=== PATIENT | female | born 1955 | race Caucasian/White ===

== ENCOUNTER → 2018-05-29 11:57 | Outpatient (CLI) | payer OTHER, SELFPAY | PROVIDERS: PCP Family Medicine; Visit Provider Family Medicine | DX: B83.9 Helminthiasis, unspecified (principal) | CPT/HCPCS: 87177 ==

== ENCOUNTER → 2018-05-30 13:57 | Outpatient (CLI) | payer OTHER, SELFPAY | PROVIDERS: PCP Family Medicine; Visit Provider Family Medicine | DX: Z53.9 Procedure and treatment not carried out, unspecified reason (principal) ==

== ENCOUNTER 2018-08-27 10:30 | Outpatient (RCR) | payer OTHER, SELFPAY ==
--- NOTE | 2018-06-23 08:54 | PT.OIE ---
Current Diagnoses Mixed incontinence (06/19/18) Other female genital prolapse (06/19/18) Past Medical History (Last Updated 04/18/18 @ 15:59 by Ashlee Tucker) Herpes (Chronic 1999) Sjogren's syndrome (Chronic 2014) Abnormal Pap smear of cervix (Resolved 2012) Cervical cancer (Resolved 2012) HPV (human papilloma virus) infection (Resolved 2012) Lupus (Resolved 2014) Past Surgical History (Last Updated 04/18/18 @ 15:56 by Ashlee Tucker) Anesthesia (Resolved) Status post appendectomy (Resolved 1972) Status post delivery (Resolved 1981) Status post delivery (Resolved 1983) Provider Visit Care Team Role Provider Type Mayela Juarez MD Primary Care Provider Physician Specialty: Family Practice Address: [address] [place] [address] Email: [email or web address] Audelia Hernandez MD Attending Provider Physician Specialty: ARMATURE COIL WINDER Address: [address] [place] [address] Email: [email or web address] Physical Therapy Initial Evaluation PT-OP-A Visit Information Start: 06/23/18 08:23 Freq: Status: Active Protocol: Document 06/19/18 13:00 [facility] (Rec: 06/23/18 08:51 [facility] [email or web address]) Out-Patient Physical Therapy Visit Information Visit Information Visit Type Initial Evaluation Visit Start Time 13:00 Visit Stop Time 13:45 Total Visit Minutes 45 Visit Number 1 Evaluation Information Evaluation Date 06/19/18 PT-OP-B Current Condition Start: 06/23/18 08:23 Freq: Status: Active Protocol: Document 06/19/18 13:00 [facility] (Rec: 06/23/18 08:51 [facility] [email or web address]) Current Condition History of Current Condition Onset Date 2 years ago Current Complaints urinary incontinence, pain during intercourse and pelvic pressure History of Current Condition 63 year old female who began having symptoms of urinary incontinence 2 years ago. She has complaints of leaking 3 times per day and pelvic organ prolapse that is intermittent but that also makes intercourse uncomfortable. She has a history of 2 C- section deiveries, lupus, sjogrens disease, she is currently taking vaginal topical estrogen which she feels is helping her. Current Functional Impairments (Reported) Functional Limitations- Recreation/ leakage with exercise and her Hobbies walking routine in the AM is compromised due to urgency PT-OP-F Manual Assessment Start: 06/23/18 08:23 Freq: Status: Active Protocol: Document 06/19/18 13:00 [facility] (Rec: 06/23/18 08:51 [facility] [email or web address]) Manual Assessments Soft Tissue Assessment Soft Tissue Mobility Assessment tightness of the gluteal musculature and tendency to fiber machine tender with her gluteals in standing Joint Mobility Assessment Joint Mobility Assessment decreased hip mobility due to soft tissue tightness, decreased flexibility of the piriformis and posterior gluteal region PT-OP-I Pelvic Floor Start: 06/23/18 08:23 Freq: Status: Active Protocol: Document 06/19/18 13:00 [facility] (Rec: 06/23/18 08:51 [facility] [email or web address]) Pelvic Floor Assessment Urine Pelvic Floor Surgery No Urinary Symptoms Urge Sensation Prolapse Other Urinary Symptoms intermittent complaints of cramping and pain, unable to finish her walk around [place] without urgency and having to void Leakage Size Medium Leakage Cause Cough Exercise Leaks Per Day 3 Voiding Frequency will work on bladder diary for next visit Nocturia 1-2 Pelvic Clock Pelvic Clock 12-3 Atrophy Pelvic Clock 3-6 Tightness Pelvic Clock 6-9 Tightness Pelvic Clock 9-12 Atrophy Pelvic Clock Other decreased contraction intensity overall and tightness noted in the posterior lateral vincent of the pelvic floor bilaterally, it is difficult for Irma to completly relax her gluteal muscles at rest Prolapse Cystocele Grade 2 Urethrocele Grade 1 SEMG (uV) Baseline 3.1 10 Second Contraction 11.3 Recruitment Pattern Fair Relaxation Fair Holding Fair Stability of Hold Fair SEMG Stability of Rest Fair Contraction Ability Voluntary Contraction Weak Manual Muscle Testing Left 3 Manual Muscle Testing Right 3 Manual Muscle Testing Anterior 3 Manual Muscle Testing Posterior 3 Muscle Endurance (Seconds) 6 PT-OP-Q Treatments Start: 06/23/18 08:23 Freq: Status: Active Protocol: Document 06/19/18 13:00 [facility] (Rec: 06/23/18 08:51 [facility] [email or web address]) Therapeutic Exercises Supine Exercises 2 Supine Exercise Name roll outs with theraband Side bilateral Reps/Minutes 3 sets of 10 reps 1 Supine Exercise Name pelvic floor isolations 10 second hold time with 10-20 second relaxation Side bilateral Reps/Minutes 2 sets of 10 reps per day Self-Care/Home Management Treatment Education Patient Education Home Exercise Program Other Education bladder diary PT-OP-T Assessment and Plan Start: 06/23/18 08:23 Freq: Status: Active Protocol: Document 06/19/18 13:00 [facility] (Rec: 06/23/18 08:51 [facility] [email or web address]) Physical Therapy Assessment Rehab Potential Rehabilitation Potential Excellent Evaluation Complexity Number of Personal Factors/Comorbidities 0 Number of Body Systems Impaired 1-2 Clinical Presentation at Evaluation Stable Impairments Impairments Activity Tolerance Pain Soft Tissue Mobility Strength Tone Other Impairments urinary urgency and incontinence and pelvic organ prolapse Goals Four Impairment decreased flexibility of the piriformis and hip ER Research Program Internship Goal (LTG) Improve piriformis flexibility and ER mobility of the hips LTG Duration 8 weeks Three Impairment gluteal tightness, over dominance of the gluteals over the levator ani Research Program Internship Goal (LTG) Irma is educated on stretches for the gluteals and posterior pelvic floor to reduce the tendency for the gluteals to be compensating for the pelvic floor. This will help improve pelvic floor facilitation and decrease hip compression LTG Duration 8 weeks Two Impairment urinary urgency Short Term Goal (STG) Irma is educated on bladder irritants and on bladder retraining to help decrease urinary urgency symptoms STG Duration 6 weeks One Impairment pelvic floor weakness Research Program Internship Goal (LTG) Improve pelvic floor strength from 3/5 MMT to 4/5 MMT and improve awareness of the anterior pelvic floor to help support the bladder and decrease leakage. Irma is able to continue her walking routine without leakage LTG Duration 8 weeks Assessment Summary Assessment Irma presents to physical therapy today with symptoms of urinary urgency and incontinence and newer symptoms of pelvic organ prolapse. She is able to facilitate all her pelvic floor muscles but is weak. She is guarded in the posterior lateral vincent of the levator ani. She has a tendency to fiber machine tender with her gluteals both at rest and in standing positions to compensate for pelvic floor weakness. She responded well today to EMG biofeedback as a tool for both relaxed awareness of the posterior pelvic floor and as neuro re-education for anterior pelvic floor facilitation. Irma's goals include being able to do her walk without urgency and leakage. She is a good candidate for PT Physical Therapy Plan Frequency and Duration Frequency of Treatment 1x/Week Duration of Treatment 8 weeks Plan of Care Start Date 06/19/18 Plan of Care End Date 08/14/18 Therapeutic Interventions Therapeutic Interventions Home Exercise Program Manual Therapy Neuromuscular Re-education Patient/Caregiver Education Self-Care/Home Management Soft Tissue Mobilization Therapeutic Exercises Modalities Biofeedback Next Visit Focus/Plan Next Note Type Treatment Note Next Visit Plan Progress pelvic floor and hip strengthening and begin a stretching routine for the posterior gluteal musculature
--- NOTE | 2018-06-23 08:55 | PT.OPPOC ---
Current Diagnoses Mixed incontinence (06/19/18) Other female genital prolapse (06/19/18) Provider Visit Care Team Role Provider Type Mayela Juarez MD Primary Care Provider Physician Specialty: Family Practice Address: [address] [place] [address], [id number] Email: [email or web address] Audelia Hernandez MD Attending Provider Physician Specialty: SUPERVIS[employer]ING [employer]STING Address: [address] [place] [address], [id number] Email: [email or web address] Plan Of Care PT-OP-T Assessment and Plan Start: 06/23/18 08:23 Freq: Status: Active Protocol: Document 06/19/18 13:00 [facility] (Rec: 06/23/18 08:51 [facility] [email or web address]) Physical Therapy Assessment Rehab Potential Rehabilitation Potential Excellent Evaluation Complexity Number of Personal Factors/Comorbidities 0 Number of Body Systems Impaired 1-2 Clinical Presentation at Evaluation Stable Impairments Impairments Activity Tolerance Pain Soft Tissue Mobility Strength Tone Other Impairments urinary urgency and incontinence and pelvic organ prolapse Goals Four Impairment decreased flexibility of the piriformis and hip ER Photo Machine Operator Goal (LTG) Improve piriformis flexibility and ER mobility of the hips LTG Duration 8 weeks Three Impairment gluteal tightness, overdominance of the gluteals over the levator ani Photo Machine Operator Goal (LTG) Irma is educated on stretches for the gluteals and posterior pelvic floor to reduce the tendency for the gluteals to be compensating fo the pelvic floor. This will help improve pelvic floor facilitation and decrease hip compression LTG Duration 8 weeks Two Impairment urinary urgency Short Term Goal (STG) Irma is educated on bladder irritants and on bladder retraining to help decrease urinary urgency symptoms STG Duration 6 weeks One Impairment pelvic floor weakness Photo Machine Operator Goal (LTG) Improve pelvic floor strength from 3/5 MMT to 4/5 MMT and improve awareness of the anterior pelvic floor to help support the bladder and decrease leakage. Irma is able to continue her walking routine without leakage LTG Duration 8 weeks Assessment Summary Assessment Irma presents to physical therapy today with symptoms of urinary urgency and incontinence and newer symptoms of pelvic organ prolapse. She is able to facilitate all her pelvic floor muscles but is weak. She is guarded in the posterior lateral vincent of the levator ani. 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 She responded well today to EMG biofeedback as a tool for both relaxed awarness of the posterior pelvic floor and as neuro re-education for anterior pelvic floor facilitation. Irma's goals include being able to do her walk without urgency and leakage. She is a good candidate for PT Physical Therapy Plan Frequency and Duration Frequency of Treatment 1x/Week Duration of Treatment 8 weeks Plan of Care Start Date 06/19/18 Plan of Care End Date 08/14/18 Therapeutic Interventions Therapeutic Interventions Home Exercise Program Manual Therapy Neuromuscular Re-education Patient/Caregiver Education Self-Care/Home Management Soft Tissue Mobilization Therapeutic Exercises Modalities Biofeedback Next Visit Focus/Plan Next Note Type Treatment Note Next Visit Plan Progress pelvic floor and hip strengthening and begin a stretcing routine for the posterior gluteal musculature Plan of Care Dates Plan of Care Start Date 06/19/18 Plan of Care End Date 08/14/18 Please Sign and Return: I have reviewed this Plan of Care and certify that the skilled therapy services above are required to meet the patient?s needs. Physician Signature Date Printed Name and Credentials Clinical Instructor Signature Printed Name and Credentials
--- NOTE | 2018-06-27 17:26 | PT.OTN ---
Current Diagnoses Mixed incontinence (06/27/18) Other female genital prolapse (06/27/18) Physical Therapy Treatment Note PT-OP-A Visit Information Start: 06/23/18 08:23 Freq: Status: Active Protocol: Document 06/27/18 17:19 [facility] (Rec: 06/27/18 17:25 [facility] [email or web address]) Out-Patient Physical Therapy Visit Information Visit Information Visit Type Treatment Note Visit Start Time 09:45 Visit Stop Time 10:30 Total Visit Minutes 45 Visit Number 2 PT-OP-B Current Condition Start: 06/23/18 08:23 Freq: Status: Active Protocol: Document 06/19/18 13:00 [facility] (Rec: 06/23/18 08:51 [facility] [email or web address]) Current Condition History of Current Condition Onset Date 2 years ago Current Complaints urinary incontinence, pain during intercourse and pelvic pressure History of Current Condition 63 year old female who began having symptoms of urinary incontinence 2 years ago. She has complaints of leaking 3 times per day and pelvic organ prolapse that is intermittent but that also makes intercourse uncomfortable. She has a history of 2 C- section deiveries, lupus, sjogrens disease, she is currently taking vaginal topical estrogen which she feels is helping her. Current Functional Impairments (Reported) Functional Limitations- Recreation/ leakage with exercise and her Hobbies walking routine in the AM is compromised due to urgency PT-OP-C Subjective Start: 06/27/18 17:25 Freq: Status: Active Protocol: Document 06/27/18 17:25 [facility] (Rec: 06/27/18 17:26 [facility] [email or web address]) OP-PT Subjective Patient Comments Patient Comments Irma reports she has really been working on posterior pelvic floor relaxation. 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 in standing Joint Mobility Assessment Joint Mobility Assessment decreased hip mobility due to soft tissue tightness, decreased flexibility of the piriformis and posterior gluteal region PT-OP-I Pelvic Floor Start: 06/23/18 08:23 Freq: Status: Active Protocol: Document 06/19/18 13:00 [facility] (Rec: 06/23/18 08:51 [facility] [email or web address]) Pelvic Floor Assessment Urine Pelvic Floor Surgery No Urinary Symptoms Urge Sensation Prolapse Other Urinary Symptoms intermittent complaints of cramping and pain, unable to finish her walk around [facility] without urgency and having to void Leakage Size Medium Leakage Cause Cough Exercise Leaks Per Day 3 Voiding Frequency will work on bladder diary for next visit Nocturia 1-2 Pelvic Clock Pelvic Clock 12-3 Atrophy Pelvic Clock 3-6 Tightness Pelvic Clock 6-9 Tightness Pelvic Clock 9-12 Atrophy Pelvic Clock Other decreased contraction intensity overall and tightness noted in the posterior lateral vincent of the pelvic floor bilaterally, it is difficult for Irma to completly relax her gluteal muscles at rest Prolapse Cystocele Grade 2 Urethrocele Grade 1 SEMG (uV) Baseline 3.1 10 Second Contraction 11.3 Recruitment Pattern Fair Relaxation Fair Holding Fair Stability of Hold Fair SEMG Stability of Rest Fair Contraction Ability Voluntary Contraction Weak Manual Muscle Testing Left 3 Manual Muscle Testing Right 3 Manual Muscle Testing Anterior 3 Manual Muscle Testing Posterior 3 Muscle Endurance (Seconds) 6 PT-OP-Q Treatments Start: 06/23/18 08:23 Freq: Status: Active Protocol: Document 06/27/18 17:19 [facility] (Rec: 06/27/18 17:25 [facility] [email or web address]) Therapeutic Exercises Supine Exercises 4 Supine Exercise Name modified pelvic floor squat stretch Reps/Minutes hold 1-2 minutes 3 Supine Exercise Name ball squeeze with pelvic floor contraction Reps/Minutes 2 x 10 2 Supine Exercise Name roll outs with theraband Side bilateral Reps/Minutes 3 sets of 10 reps 1 Supine Exercise Name pelvic floor isolations 10 second hold time with 10-20 second relaxation Side bilateral Reps/Minutes 2 sets of 10 reps per day Other Exercises 2 Other Exercise Name nataly pose Reps/Minutes 1-2 minute hold 1 Other Exercise Name quadraped cat cow Comments pelvic floor relaxation on the inhale and cues to spread sitting bones PT-OP-T Assessment and Plan Start: 06/23/18 08:23 Freq: Status: Active Protocol: Document 06/27/18 17:19 [facility] (Rec: 06/27/18 17:25 [facility] [email or web address]) Physical Therapy Assessment Assessment Summary Assessment Irma had improved awareness of relaxing the pelvic floor and she could feel pelvic floor relaxation in stretching positions today. On EMG biofeedback her resting tone was lower today as she is learning to relax the posterior vincent of her pelvic floor. Physical Therapy Plan Frequency and Duration Frequency of Treatment 1x/Week Duration of Treatment 8 weeks Plan of Care Start Date 06/19/18 Plan of Care End Date 08/14/18 Therapeutic Interventions Therapeutic Interventions Home Exercise Program Manual Therapy Neuromuscular Re-education Patient/Caregiver Education Self-Care/Home Management Soft Tissue Mobilization Therapeutic Exercises Modalities Biofeedback Next Visit Focus/Plan Next Note Type Treatment Note Next Visit Plan begin templates for eccentric control and add in clam shells
--- NOTE | 2018-07-03 12:30 | PT.OTN ---
Current Diagnoses Mixed incontinence (07/03/18) Other female genital prolapse (07/03/18) Physical Therapy Treatment Note PT-OP-A Visit Information Start: 06/23/18 08:23 Freq: Status: Active Protocol: Document 06/27/18 17:19 [facility] (Rec: 06/27/18 17:25 [facility] [email or web address]) Out-Patient Physical Therapy Visit Information Visit Information Visit Type Treatment Note Visit Start Time 09:45 Visit Stop Time 10:30 Total Visit Minutes 45 Visit Number 2 PT-OP-B Current Condition Start: 06/23/18 08:23 Freq: Status: Active Protocol: Document 06/19/18 13:00 [facility] (Rec: 06/23/18 08:51 [facility] [email or web address]) Current Condition History of Current Condition Onset Date 2 years ago Current Complaints urinary incontinence, pain during intercourse and pelvic pressure History of Current Condition 63 year old female who began having symptoms of urinary incontinence 2 years ago. She has complaints of leaking 3 times per day and pelvic organ prolapse that is intermittent but that also makes intercourse uncomfortable. She has a history of 2 C- section deiveries, lupus, sjogrens disease, she is currently taking vaginal topical estrogen which she feels is helping her. Current Functional Impairments (Reported) Functional Limitations- Recreation/ leakage with exercise and her Hobbies walking routine in the AM is compromised due to urgency PT-OP-C Subjective Start: 06/27/18 17:25 Freq: Status: Active Protocol: Document 06/27/18 17:25 [facility] (Rec: 06/27/18 17:26 [facility] [email or web address]) OP-PT Subjective Patient Comments Patient Comments Irma reports she has really been working on posterior pelvic floor relaxation. 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 Joint Mobility Assessment Joint Mobility Assessment decreased hip mobility due to soft tissue tightness, decreased flexibility of the piriformis and posterior gluteal region PT-OP-I Pelvic Floor Start: 06/23/18 08:23 Freq: Status: Active Protocol: Document 06/19/18 13:00 [facility] (Rec: 06/23/18 08:51 [facility] [email or web address]) Pelvic Floor Assessment Urine Pelvic Floor Surgery No Urinary Symptoms Urge Sensation Prolapse Other Urinary Symptoms intermittent complaints of cramping and pain, unable to finish her walk around [facility] without urgency and having to void Leakage Size Medium Leakage Cause Cough Exercise Leaks Per Day 3 Voiding Frequency will work on bladder diary for next visit Nocturia 1-2 Pelvic Clock Pelvic Clock 12-3 Atrophy Pelvic Clock 3-6 Tightness Pelvic Clock 6-9 Tightness Pelvic Clock 9-12 Atrophy Pelvic Clock Other decreased contraction intensity overall and tightness noted in the posterior lateral vincent of the pelvic floor bilaterally, it is difficult for Irma to completly relax her gluteal muscles at rest Prolapse Cystocele Grade 2 Urethrocele Grade 1 SEMG (uV) Baseline 3.1 10 Second Contraction 11.3 Recruitment Pattern Fair Relaxation Fair Holding Fair Stability of Hold Fair SEMG Stability of Rest Fair Contraction Ability Voluntary Contraction Weak Manual Muscle Testing Left 3 Manual Muscle Testing Right 3 Manual Muscle Testing Anterior 3 Manual Muscle Testing Posterior 3 Muscle Endurance (Seconds) 6 PT-OP-Q Treatments Start: 06/23/18 08:23 Freq: Status: Active Protocol: Document 06/27/18 17:19 [facility] (Rec: 06/27/18 17:25 [facility] [email or web address]) Therapeutic Exercises Supine Exercises 4 Supine Exercise Name modified pelvic floor squat stretch Reps/Minutes hold 1-2 minutes 3 Supine Exercise Name ball squeeze with pelvic floor contraction Reps/Minutes 2 x 10 2 Supine Exercise Name roll outs with theraband Side bilateral Reps/Minutes 3 sets of 10 reps 1 Supine Exercise Name pelvic floor isolations 10 second hold time with 10-20 second relaxation Side bilateral Reps/Minutes 2 sets of 10 reps per day Other Exercises 2 Other Exercise Name nataly pose Reps/Minutes 1-2 minute hold 1 Other Exercise Name quadraped cat cow Comments pelvic floor relaxation on the inhale and cues to spread sitting bones PT-OP-T Assessment and Plan Start: 06/23/18 08:23 Freq: Status: Active Protocol: Document 06/27/18 17:19 [facility] (Rec: 06/27/18 17:25 [facility] [email or web address]) Physical Therapy Assessment Assessment Summary Assessment Irma had improved awareness of relaxing the pelvic floor and she could feel pelvic floor relaxation in stretcing positions today. On EMG biofeedback her resting tone was lower today as she is learning to relax the posterior vincent of her pelvic floor. Physical Therapy Plan Frequency and Duration Frequency of Treatment 1x/Week Duration of Treatment 8 weeks Plan of Care Start Date 06/19/18 Plan of Care End Date 08/14/18 Therapeutic Interventions Therapeutic Interventions Home Exercise Program Manual Therapy Neuromuscular Re-education Patient/Caregiver Education Self-Care/Home Management Soft Tissue Mobilization Therapeutic Exercises Modalities Biofeedback Next Visit Focus/Plan Next Note Type Treatment Note Next Visit Plan begin templates for eccentric control and add in clam shells
--- NOTE | 2018-07-03 14:27 | PT.OTN ---
Current Diagnoses Mixed incontinence (07/03/18) Other female genital prolapse (07/03/18) Physical Therapy Treatment Note PT-OP-A Visit Information Start: 06/23/18 08:23 Freq: Status: Active Protocol: Document 07/03/18 14:21 [facility] (Rec: 07/03/18 14:27 [facility] [email or web address]) Out-Patient Physical Therapy Visit Information Visit Information Visit Type Treatment Note Visit Start Time 12:15 Visit Stop Time 01:00 Total Visit Minutes 45 Visit Number 3 Evaluation Information Evaluation Date 06/19/18 PT-OP-B Current Condition Start: 06/23/18 08:23 Freq: Status: Active Protocol: Document 06/19/18 13:00 [facility] (Rec: 06/23/18 08:51 [facility] [email or web address]) Current Condition History of Current Condition Onset Date 2 years ago Current Complaints urinary incontinence, pain during intercourse and pelvic pressure History of Current Condition 63 year old female who began having symptoms of urinary incontinence 2 years ago. She has complaints of leaking 3 times per day and pelvic organ prolapse that is intermittent but that also makes intercourse uncomfortable. She has a history of 2 C- section deiveries, lupus, sjogrens disease, she is currently taking vaginal topical estrogen which she feels is helping her. Current Functional Impairments (Reported) Functional Limitations- Recreation/ leakage with exercise and her Hobbies walking routine in the AM is compromised due to urgency PT-OP-C Subjective Start: 06/27/18 17:25 Freq: Status: Active Protocol: Document 07/03/18 14:21 [facility] (Rec: 07/03/18 14:27 [facility] [email or web address]) OP-PT Subjective Patient Comments Patient Comments Irma is finding it is difficult to find her anterior pelvic floor PT-OP-F Manual Assessment Start: 06/23/18 08:23 Freq: Status: Active Protocol: Document 06/19/18 13:00 [facility] (Rec: 06/23/18 08:51 [facility] [email or web address]) Manual Assessments Soft Tissue Assessment Soft Tissue Mobility Assessment tightness of the gluteal musculature and tendency 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 gluteals in standing Joint Mobility Assessment Joint Mobility Assessment decreased hip mobility due to soft tissue tightness, decreased flexibility of the piriformis and posterior gluteal region PT-OP-I Pelvic Floor Start: 06/23/18 08:23 Freq: Status: Active Protocol: Document 06/19/18 13:00 [facility] (Rec: 06/23/18 08:51 [facility] [email or web address]) Pelvic Floor Assessment Urine Pelvic Floor Surgery No Urinary Symptoms Urge Sensation Prolapse Other Urinary Symptoms intermittent complaints of cramping and pain, unable to finish her walk around [facility] without urgency and having to void Leakage Size Medium Leakage Cause Cough Exercise Leaks Per Day 3 Voiding Frequency will work on bladder diary for next visit Nocturia 1-2 Pelvic Clock Pelvic Clock 12-3 Atrophy Pelvic Clock 3-6 Tightness Pelvic Clock 6-9 Tightness Pelvic Clock 9-12 Atrophy Pelvic Clock Other decreased contraction intensity overall and tightness noted in the posterior lateral vincent of the pelvic floor bilaterally, it is difficult for Irma to completly relax her gluteal muscles at rest Prolapse Cystocele Grade 2 Urethrocele Grade 1 SEMG (uV) Baseline 3.1 10 Second Contraction 11.3 Recruitment Pattern Fair Relaxation Fair Holding Fair Stability of Hold Fair SEMG Stability of Rest Fair Contraction Ability Voluntary Contraction Weak Manual Muscle Testing Left 3 Manual Muscle Testing Right 3 Manual Muscle Testing Anterior 3 Manual Muscle Testing Posterior 3 Muscle Endurance (Seconds) 6 PT-OP-Q Treatments Start: 06/23/18 08:23 Freq: Status: Active Protocol: Document 07/03/18 14:21 [facility] (Rec: 07/03/18 14:27 [facility] [email or web address]) Therapeutic Exercises Supine Exercises 5 Supine Exercise Name quick pelvic floor contractions 3 Supine Exercise Name ball squeeze with pelvic floor contraction Reps/Minutes 2 x 10 2 Supine Exercise Name roll outs with theraband Side bilateral Reps/Minutes 3 sets of 10 reps 1 Supine Exercise Name pelvic floor isolations 10 second hold time with 10-20 second relaxation Side bilateral Reps/Minutes 2 sets of 10 reps per day Prone Exercises 1 Prone Exercise Name prone laying pelvic floor contraction Other Exercises 4 Other Exercise Name diaphraghmatic breathing 3 Other Exercise Name quadraped TA facilitation with breathing 1 Other Exercise Name quadraped cat cow Comments pelvic floor relaxation on the inhale and cues to spread sitting bones Neuro Re-Education Treatment Other Activities 1 Details NMES for pelvic floor facilitation Comments 5 minutes at level 4 Self-Care/Home Management Treatment Education Patient Education Home Exercise Program Other Education urge deference technique for bladder retraining PT-OP-T Assessment and Plan Start: 06/23/18 08:23 Freq: Status: Active Protocol: Document 07/03/18 14:21 [facility] (Rec: 07/03/18 14:27 [facility] [email or web address]) Physical Therapy Assessment Assessment Summary Assessment worked on laying prone today for anterior pelvic floor recruitment and this really helped Irma find her pelvic floor. We also added in NMES and she only felt this in the posterior section of the pelvic floor at level 3 Physical Therapy Plan Frequency and Duration Frequency of Treatment 1x/Week Duration of Treatment 8 weeks Plan of Care Start Date 06/19/18 Plan of Care End Date 08/14/18 Therapeutic Interventions Therapeutic Interventions Home Exercise Program Manual Therapy Neuromuscular Re-education Patient/Caregiver Education Self-Care/Home Management Soft Tissue Mobilization Therapeutic Exercises Modalities Biofeedback Next Visit Focus/Plan Next Note Type Treatment Note Next Visit Plan NMES and templates for eccentric control and clam shells
--- NOTE | 2018-07-24 14:13 | PT.OTN ---
Current Diagnoses Mixed incontinence (07/24/18) Other female genital prolapse (07/24/18) Physical Therapy Treatment Note PT-OP-A Visit Information Start: 06/23/18 08:23 Freq: Status: Active Protocol: Document 07/24/18 14:03 [facility] (Rec: 07/24/18 14:13 [facility] [email or web address]) Out-Patient Physical Therapy Visit Information Visit Information Visit Type Treatment Note Visit Start Time 11:30 Visit Stop Time 12:15 Total Visit Minutes 45 Visit Number 4 Evaluation Information Evaluation Date 06/19/18 PT-OP-B Current Condition Start: 06/23/18 08:23 Freq: Status: Active Protocol: Document 06/19/18 13:00 [facility] (Rec: 06/23/18 08:51 [facility] [email or web address]) Current Condition History of Current Condition Onset Date 2 years ago Current Complaints urinary incontinence, pain during intercourse and pelvic pressure History of Current Condition 63 year old female who began having symptoms of urinary incontinence 2 years ago. She has complaints of leaking 3 times per day and pelvic organ prolapse that is intermittent but that also makes intercourse uncomfortable. She has a history of 2 C- section deiveries, lupus, sjogrens disease, she is currently taking vaginal topical estrogen which she feels is helping her. Current Functional Impairments (Reported) Functional Limitations- Recreation/ leakage with exercise and her Hobbies walking routine in the AM is compromised due to urgency PT-OP-C Subjective Start: 06/27/18 17:25 Freq: Status: Active Protocol: Document 07/24/18 14:03 [facility] (Rec: 07/24/18 14:13 [facility] [email or web address]) OP-PT Subjective Patient Comments Patient Comments Irma reports her last visit really helped her but knowit has been three weeks in between visits and that has been too long PT-OP-F Manual Assessment Start: 06/23/18 08:23 Freq: Status: Active Protocol: Document 06/19/18 13:00 [facility] (Rec: 06/23/18 08:51 [facility] [email or web address]) Manual Assessments Soft Tissue Assessment Soft Tissue Mobility Assessment tightness of the gluteal musculature and 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 in standing Joint Mobility Assessment Joint Mobility Assessment decreased hip mobility due to soft tissue tightness, decreased flexibility of the piriformis and posterior gluteal region PT-OP-I Pelvic Floor Start: 06/23/18 08:23 Freq: Status: Active Protocol: Document 06/19/18 13:00 [facility] (Rec: 06/23/18 08:51 [facility] [email or web address]) Pelvic Floor Assessment Urine Pelvic Floor Surgery No Urinary Symptoms Urge Sensation Prolapse Other Urinary Symptoms intermittent complaints of cramping and pain, unable to finish her walk around [facility] without urgency and having to void Leakage Size Medium Leakage Cause Cough Exercise Leaks Per Day 3 Voiding Frequency will work on bladder diary for next visit Nocturia 1-2 Pelvic Clock Pelvic Clock 12-3 Atrophy Pelvic Clock 3-6 Tightness Pelvic Clock 6-9 Tightness Pelvic Clock 9-12 Atrophy Pelvic Clock Other decreased contraction intensity overall and tightness noted in the posterior lateral vincent of the pelvic floor bilaterally, it is difficult for Irma to completly relax her gluteal muscles at rest Prolapse Cystocele Grade 2 Urethrocele Grade 1 SEMG (uV) Baseline 3.1 10 Second Contraction 11.3 Recruitment Pattern Fair Relaxation Fair Holding Fair Stability of Hold Fair SEMG Stability of Rest Fair Contraction Ability Voluntary Contraction Weak Manual Muscle Testing Left 3 Manual Muscle Testing Right 3 Manual Muscle Testing Anterior 3 Manual Muscle Testing Posterior 3 Muscle Endurance (Seconds) 6 PT-OP-Q Treatments Start: 06/23/18 08:23 Freq: Status: Active Protocol: Document 07/24/18 14:03 [facility] (Rec: 07/24/18 14:13 [facility] [email or web address]) Therapeutic Exercises Supine Exercises 6 Supine Exercise Name templates for eccentric control and coordination 5 Supine Exercise Name quick pelvic floor contractions 1 Supine Exercise Name pelvic floor isolations 10 second hold time with 10-20 second relaxation Side bilateral Reps/Minutes 2 sets of 10 reps per day Other Exercises 3 Other Exercise Name quadraped TA facilitation with breathing 1 Other Exercise Name quadraped cat cow Comments pelvic floor relaxation on the inhale and cues to spread sitting bones Neuro Re-Education Treatment Other Activities 1 Details NMES for pelvic floor facilitation Comments 5 minutes at level 4 PT-OP-T Assessment and Plan Start: 06/23/18 08:23 Freq: Status: Active Protocol: Document 07/24/18 14:03 [facility] (Rec: 07/24/18 14:13 [facility] [email or web address]) Physical Therapy Assessment Assessment Summary Assessment improved pelvic floor facilitation this visit and improved sensation of the pelvic floor Physical Therapy Plan Frequency and Duration Frequency of Treatment 1x/Week Duration of Treatment 8 weeks Plan of Care Start Date 06/19/18 Plan of Care End Date 08/14/18 Therapeutic Interventions Therapeutic Interventions Home Exercise Program Manual Therapy Neuromuscular Re-education Patient/Caregiver Education Self-Care/Home Management Soft Tissue Mobilization Therapeutic Exercises Modalities Biofeedback Next Visit Focus/Plan Next Note Type Treatment Note Next Visit Plan NMES and templates for eccentric control and clam shells
--- NOTE | 2018-08-01 11:45 | PT.OTN ---
Current Diagnoses Mixed incontinence (08/01/18) Other female genital prolapse (08/01/18) Physical Therapy Treatment Note PT-OP-A Visit Information Start: 06/23/18 08:23 Freq: Status: Active Protocol: Document 08/01/18 11:38 [facility] (Rec: 08/01/18 11:45 [facility] [email or web address]) Out-Patient Physical Therapy Visit Information Visit Information Visit Type Treatment Note Visit Start Time 10:30 Visit Stop Time 11:15 Total Visit Minutes 45 Visit Number 5 Evaluation Information Evaluation Date 06/19/18 PT-OP-B Current Condition Start: 06/23/18 08:23 Freq: Status: Active Protocol: Document 06/19/18 13:00 [facility] (Rec: 06/23/18 08:51 [facility] [email or web address]) Current Condition History of Current Condition Onset Date 2 years ago Current Complaints urinary incontinence, pain during intercourse and pelvic pressure History of Current Condition 63 year old female who began having symptoms of urinary incontinence 2 years ago. She has complaints of leaking 3 times per day and pelvic organ prolapse that is intermittent but that also makes intercourse uncomfortable. She has a history of 2 C- section deiveries, lupus, sjogrens disease, she is currently taking vaginal topical estrogen which she feels is helping her. Current Functional Impairments (Reported) Functional Limitations- Recreation/ leakage with exercise and her Hobbies walking routine in the AM is compromised due to urgency PT-OP-C Subjective Start: 06/27/18 17:25 Freq: Status: Active Protocol: Document 08/01/18 11:38 [facility] (Rec: 08/01/18 11:45 [facility] [email or web address]) OP-PT Subjective Patient Comments Patient Comments irma reports she was out of town this past week traveling and noted that she didn't leak as much with travel as she had in the past. She was encouraged by this. 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 standing Joint Mobility Assessment Joint Mobility Assessment decreased hip mobility due to soft tissue tightness, decreased flexibility of the piriformis and posterior gluteal region PT-OP-I Pelvic Floor Start: 06/23/18 08:23 Freq: Status: Active Protocol: Document 06/19/18 13:00 [facility] (Rec: 06/23/18 08:51 [facility] [email or web address]) Pelvic Floor Assessment Urine Pelvic Floor Surgery No Urinary Symptoms Urge Sensation Prolapse Other Urinary Symptoms intermittent complaints of cramping and pain, unable to finish her walk [place] without urgency and having to void Leakage Size Medium Leakage Cause Cough Exercise Leaks Per Day 3 Voiding Frequency will work on bladder diary for next visit Nocturia 1-2 Pelvic Clock Pelvic Clock 12-3 Atrophy Pelvic Clock 3-6 Tightness Pelvic Clock 6-9 Tightness Pelvic Clock 9-12 Atrophy Pelvic Clock Other decreased contraction intensity overall and tightness noted in the posterior lateral vincent of the pelvic floor bilaterally, it is difficult for Irma to completly relax her gluteal muscles at rest Prolapse Cystocele Grade 2 Urethrocele Grade 1 SEMG (uV) Baseline 3.1 10 Second Contraction 11.3 Recruitment Pattern Fair Relaxation Fair Holding Fair Stability of Hold Fair SEMG Stability of Rest Fair Contraction Ability Voluntary Contraction Weak Manual Muscle Testing Left 3 Manual Muscle Testing Right 3 Manual Muscle Testing Anterior 3 Manual Muscle Testing Posterior 3 Muscle Endurance (Seconds) 6 PT-OP-Q Treatments Start: 06/23/18 08:23 Freq: Status: Active Protocol: Document 08/01/18 11:38 [facility] (Rec: 08/01/18 11:45 [facility] [email or web address]) Therapeutic Exercises Supine Exercises 8 Supine Exercise Name TA with marches and heel slides 7 Supine Exercise Name piriformis stretch 6 Supine Exercise Name templates for eccentric control and coordination 5 Supine Exercise Name quick pelvic floor contractions 4 Supine Exercise Name modified pelvic floor squat stretch Reps/Minutes hold 1-2 minutes 2 Supine Exercise Name roll outs with theraband Side bilateral Reps/Minutes 3 sets of 10 reps 1 Supine Exercise Name pelvic floor isolations 10 second hold time with 10-20 second relaxation Side bilateral Reps/Minutes 2 sets of 10 reps per day Other Exercises 5 Other Exercise Name TA with opp arm and leg lifts 4 Other Exercise Name diaphraghmatic breathing 1 Other Exercise Name quadraped cat cow Comments pelvic floor relaxation on the inhale and cues to spread sitting bones PT-OP-T Assessment and Plan Start: 06/23/18 08:23 Freq: Status: Active Protocol: Document 08/01/18 11:38 [facility] (Rec: 08/01/18 11:45 [facility] [email or web address]) Physical Therapy Assessment Assessment Summary Assessment Irma ordered a home NMES unit , this will be beneficial for her. She is demonstrating improved awareness of her pelvic floor and transverse abdominal facilitation Physical Therapy Plan Frequency and Duration Frequency of Treatment 1x/Week Duration of Treatment 8 weeks Plan of Care Start Date 06/19/18 Plan of Care End Date 08/14/18 Therapeutic Interventions Therapeutic Interventions Home Exercise Program Manual Therapy Neuromuscular Re-education Patient/Caregiver Education Self-Care/Home Management Soft Tissue Mobilization Therapeutic Exercises Modalities Biofeedback Next Visit Focus/Plan Next Note Type Treatment Note Next Visit Plan continue with TA facilitation and dynamic stabilization
--- NOTE | 2018-08-13 12:52 | PT.OTN ---
Current Diagnoses Mixed incontinence (08/13/18) Other female genital prolapse (08/13/18) Physical Therapy Treatment Note PT-OP-A Visit Information Start: 06/23/18 08:23 Freq: Status: Active Protocol: Document 08/13/18 10:31 [facility] (Rec: 08/13/18 10:33 [facility] [email or web address]) Out-Patient Physical Therapy Visit Information Visit Information Visit Type Treatment Note Visit Start Time 10:30 Visit Stop Time 11:15 Total Visit Minutes 45 Visit Number 7 PT-OP-B Current Condition Start: 06/23/18 08:23 Freq: Status: Active Protocol: Document 06/19/18 13:00 [facility] (Rec: 06/23/18 08:51 [facility] [email or web address]) Current Condition History of Current Condition Onset Date 2 years ago Current Complaints urinary incontinence, pain during intercourse and pelvic pressure History of Current Condition 63 year old female who began having symptoms of urinary incontinence 2 years ago. She has complaints of leaking 3 times per day and pelvic organ prolapse that is intermittent but that also makes intercourse uncomfortable. She has a history of 2 C- section deiveries, lupus, sjogrens disease, she is currently taking vaginal topical estrogen which she feels is helping her. Current Functional Impairments (Reported) Functional Limitations- Recreation/ leakage with exercise and her Hobbies walking routine in the AM is compromised due to urgency PT-OP-C Subjective Start: 06/27/18 17:25 Freq: Status: Active Protocol: Document 08/13/18 10:31 [facility] (Rec: 08/13/18 10:33 [facility] [email or web address]) OP-PT Subjective Patient Comments Patient Comments Could feel her pleivc floor and transverse abdominal muscles in standing once or twice this week PT-OP-F Manual Assessment Start: 06/23/18 08:23 Freq: Status: Active Protocol: Document 06/19/18 13:00 [facility] (Rec: 06/23/18 08:51 [facility] [email or web address]) Manual Assessments Soft Tissue Assessment Soft Tissue Mobility Assessment tightness of the gluteal musculature and tendency to load out person with her gluteals in standing Joint Mobility Assessment Joint Mobility Assessment decreased hip mobility due to soft tissue tightness, decreased flexibility of the piriformis and posterior gluteal region PT-OP-I Pelvic Floor Start: 06/23/18 08:23 Freq: Status: Active Protocol: Document 06/19/18 13:00 [facility] (Rec: 06/23/18 08:51 [facility] [email or web address]) Pelvic Floor Assessment Urine Pelvic Floor Surgery No Urinary Symptoms Urge Sensation Prolapse Other Urinary Symptoms intermittent complaints of cramping and pain, unable to finish her walk around [place] without urgency and having to void Leakage Size Medium Leakage Cause Cough Exercise Leaks Per Day 3 Voiding Frequency will work on bladder diary for next visit Nocturia 1-2 Pelvic Clock Pelvic Clock 12-3 Atrophy Pelvic Clock 3-6 Tightness Pelvic Clock 6-9 Tightness Pelvic Clock 9-12 Atrophy Pelvic Clock Other decreased contraction intensity overall and tightness noted in the posterior lateral vincent of the pelvic floor bilaterally, it is difficult for Irma to completly relax her gluteal muscles at rest Prolapse Cystocele Grade 2 Urethrocele Grade 1 SEMG (uV) Baseline 3.1 10 Second Contraction 11.3 Recruitment Pattern Fair Relaxation Fair Holding Fair Stability of Hold Fair SEMG Stability of Rest Fair Contraction Ability Voluntary Contraction Weak Manual Muscle Testing Left 3 Manual Muscle Testing Right 3 Manual Muscle Testing Anterior 3 Manual Muscle Testing Posterior 3 Muscle Endurance (Seconds) 6 PT-OP-Q Treatments Start: 06/23/18 08:23 Freq: Status: Active Protocol: Document 08/13/18 10:49 [facility] (Rec: 08/13/18 11:04 [facility] [email or web address]) Therapeutic Exercises Supine Exercises 8 Supine Exercise Name TA with marches and heel slides 7 Supine Exercise Name piriformis stretch 6 Supine Exercise Name templates for eccentric control and coordination 5 Supine Exercise Name quick pelvic floor contractions 3 Supine Exercise Name ball squeeze with pelvic floor contraction Reps/Minutes 2 x 10 1 Supine Exercise Name pelvic floor isolations 10 second hold time with 10-20 second relaxation Side bilateral Reps/Minutes 2 sets of 10 reps per day Prone Exercises 1 Prone Exercise Name cobra stretch Side bilateral Sidelying Exercises 1 Sidelying Exercise Name clam shells Other Exercises 6 Other Exercise Name TA with opposite arms and legs 5 Other Exercise Name TA with opp arm and leg lifts 4 Other Exercise Name diaphraghmatic breathing 3 Other Exercise Name quadraped TA facilitation with breathing 2 Other Exercise Name nataly pose Reps/Minutes 1-2 minute hold 1 Other Exercise Name quadraped cat cow Comments pelvic floor relaxation on the inhale and cues to spread sitting bones PT-OP-T Assessment and Plan Start: 06/23/18 08:23 Freq: Status: Active Protocol: Document 08/13/18 12:51 [facility] (Rec: 08/13/18 12:52 [facility] [email or web address]) Physical Therapy Assessment Assessment Summary Assessment Doing much better overall. Next visit is Irma's last visit. Recheck pelvic floor strength and review all extablished ther ex Physical Therapy Plan Frequency and Duration Frequency of Treatment 1x/Week Duration of Treatment 8 weeks Plan of Care Start Date 06/19/18 Plan of Care End Date 08/14/18 Next Visit Focus/Plan Next Note Type Treatment Note Next Visit Plan this next visit will be Irma' s last visit. Recheck pelvic floor strength
--- NOTE | 2018-08-27 11:51 | PT.OTN ---
Current Diagnoses Mixed incontinence (08/27/18) Other female genital prolapse (08/27/18) Physical Therapy Treatment Note PT-OP-A Visit Information Start: 06/23/18 08:23 Freq: Status: Active Protocol: Document 08/27/18 11:36 [facility] (Rec: 08/27/18 11:50 [facility] [email or web address]) Out-Patient Physical Therapy Visit Information Visit Information Visit Type Treatment Note Visit Start Time 10:30 Visit Stop Time 11:15 Total Visit Minutes 45 Visit Number 8 Evaluation Information Evaluation Date 06/19/18 PT-OP-B Current Condition Start: 06/23/18 08:23 Freq: Status: Active Protocol: Document 06/19/18 13:00 [facility] (Rec: 06/23/18 08:51 [facility] [email or web address]) Current Condition History of Current Condition Onset Date 2 years ago Current Complaints urinary incontinence, pain during intercourse and pelvic pressure History of Current Condition 63 year old female who began having symptoms of urinary incontinence 2 years ago. She has complaints of leaking 3 times per day and pelvic organ prolapse that is intermittent but that also makes intercourse uncomfortable. She has a history of 2 C- section deiveries, lupus, sjogrens disease, she is currently taking vaginal topical estrogen which she feels is helping her. Current Functional Impairments (Reported) Functional Limitations- Recreation/ leakage with exercise and her Hobbies walking routine in the AM is compromised due to urgency PT-OP-C Subjective Start: 06/27/18 17:25 Freq: Status: Active Protocol: Document 08/27/18 11:36 [facility] (Rec: 08/27/18 11:50 [facility] [email or web address]) OP-PT Subjective Patient Comments Patient Comments Irma reports his symptoms are improved overall and she is feeling realy good about her home program. She has better control over her urges and notes decreased complaints of pelvic pressure. PT-OP-F Manual Assessment Start: 06/23/18 08:23 Freq: Status: Active Protocol: Document 06/19/18 13:00 [facility] (Rec: 06/23/18 08:51 [facility] [email or web address]) Manual Assessments Soft Tissue Assessment Soft Tissue Mobility Assessment tightness of the gluteal musculature and tendency to eye surgeon with her gluteals in standing Joint Mobility Assessment Joint Mobility Assessment decreased hip mobility due to soft tissue tightness, decreased flexibility of the piriformis and posterior gluteal region PT-OP-I Pelvic Floor Start: 06/23/18 08:23 Freq: Status: Active Protocol: Document 08/27/18 11:36 [facility] (Rec: 08/27/18 11:50 [facility] [email or web address]) Pelvic Floor Assessment SEMG (uV) Baseline 2.0 10 Second Contraction 20 Recruitment Pattern Good Relaxation Fair Holding Good Stability of Hold Good SEMG Stability of Rest Good Contraction Ability Voluntary Contraction Moderate Voluntary Relaxation Moderate Manual Muscle Testing Left 4 Manual Muscle Testing Right 4 Manual Muscle Testing Anterior 3 Manual Muscle Testing Posterior 4 Comments Pelvic Floor Comments Irma has doubled her strength on EMG biofeedback of the pelvic floor and has gone up a muslce gread to 4/5 on MMT PT-OP-Q Treatments Start: 06/23/18 08:23 Freq: Status: Active Protocol: Document 08/27/18 11:36 [facility] (Rec: 08/27/18 11:50 [facility] [email or web address]) Therapeutic Exercises Supine Exercises 8 Supine Exercise Name TA with marches and heel slides 7 Supine Exercise Name piriformis stretch 5 Supine Exercise Name quick pelvic floor contractions 1 Supine Exercise Name pelvic floor isolations 10 second hold time with 10-20 second relaxation Side bilateral Reps/Minutes 2 sets of 10 reps per day Prone Exercises 1 Prone Exercise Name supine stretch over the foam roll Sidelying Exercises 1 Sidelying Exercise Name clam shells Other Exercises 5 Other Exercise Name TA with opp arm and leg lifts 3 Other Exercise Name quadraped TA facilitation with breathing 1 Other Exercise Name quadraped cat cow Comments pelvic floor relaxation on the inhale and cues to spread sitting bones Manual Therapy Treatment Other Other Manual Treatments manual reassessment of pelvic floor strength and tone PT-OP-T Assessment and Plan Start: 06/23/18 08:23 Freq: Status: Active Protocol: Document 08/27/18 11:36 [facility] (Rec: 08/27/18 11:50 [facility] [email or web address]) Physical Therapy Assessment Progress Towards Goals Progress Towards Goals Goals Met Assessment Summary Assessment Irma has made great overall progress with physical therapy . She has a much better awareness now of her pelvic floor and transverse abdominal musculature and her strength has improved greatly. She is also noting improvement with decreased urgency and pelvic pressure. She will be discharged at this time to a independent home program. She has a follow up with Dr. Hernandez in October Physical Therapy Plan Discharge Physical Therapy Discharge Reasons Goals Met
== END 2019-03-24 12:27 | disposition home or self-care (01) ==
LOC: PHYS 10:30
PROVIDERS: PCP Family Medicine; Visit Provider Obstetrics & Gynecology
DX: N39.46 Mixed incontinence (principal); N81.89 Other female genital prolapse
CPT/HCPCS: 97110; 97112; 97161

== ENCOUNTER 2019-04-17 09:45 | Outpatient (RCR) | payer OTHER, SELFPAY ==
--- NOTE | 2019-01-02 17:40 | PT.OIE ---
Current Diagnoses Mixed incontinence (01/02/19) Other female genital prolapse (01/02/19) Past Medical History (Last Updated 04/18/18 @ 15:59 by Ashlee Tucker) Herpes (Chronic 1999) Sjogren's syndrome (Chronic 2014) Abnormal Pap smear of cervix (Resolved 2012) Cervical cancer (Resolved 2012) HPV (human papilloma virus) infection (Resolved 2012) Lupus (Resolved 2014) Past Surgical History (Last Updated 04/18/18 @ 15:56 by Ashlee Tucker) Anesthesia (Resolved) Status post appendectomy (Resolved 1972) Status post delivery (Resolved 1981) Status post delivery (Resolved 1983) Provider Visit Care Team Role Provider Type Mayela Juarez MD Primary Care Provider Physician Specialty: Family Practice Address: [address] [place] [address] Email: [email or web address] Audelia Hernandez MD Attending Provider Physician Specialty: METALLOGRAPHIC TECHNICIAN Address: [address] [place] [address] Email: [email or web address] Physical Therapy Initial Evaluation PT-OP-A Visit Information Start: 01/02/19 16:40 Freq: Status: Active Protocol: Document 01/02/19 16:41 [facility] (Rec: 01/02/19 17:22 [facility] [email or web address]) Out-Patient Physical Therapy Visit Information Visit Information Visit Type Initial Evaluation Visit Start Time 10:30 Visit Stop Time 11:15 Total Visit Minutes 45 Visit Number 1 Evaluation Information Evaluation Date 01/02/19 PT-OP-B Current Condition Start: 01/02/19 16:40 Freq: Status: Active Protocol: Document 01/02/19 16:41 [facility] (Rec: 01/02/19 17:22 [facility] [email or web address]) Current Condition History of Current Condition Onset Date 2016 Current Complaints c/o urinary urgency and frequency History of Current Condition 63 year old female who was previously seen in PT in June of 2018 with urinary incontinence, pain during intercourse and pelvic pressure. She returns to PT today after helping take care of her son over this past month. She feels that she has not been able to do her exercises due to taking care of her son and would like guidence on resuming a home program. She also began taking vagifem and feels this has helped with her skin irritation and decreased c/o pelvic heavyness since last time she was in PT. Her chief complaint at this time is urinary urgency and leakage . Treatment Goals Patient/Caregiver Goals to decrease leakage and urgency Current Functional Impairments (Reported) Functional Limitations- Recreation/ leaking with exercise and Hobbies needing to stop and void during her am walk around [facility] PT-OP-F Manual Assessment Start: 01/02/19 17:23 Freq: Status: Active Protocol: Document 01/02/19 17:23 [facility] (Rec: 01/02/19 17:40 [facility] [email or web address]) Manual Assessments Soft Tissue Assessment Soft Tissue Mobility Assessment pirifomis tightness left greater than right PT-OP-I Pelvic Floor Start: 01/02/19 16:40 Freq: Status: Active Protocol: Document 01/02/19 16:41 [facility] (Rec: 01/02/19 17:22 [facility] [email or web address]) Pelvic Floor Assessment Urine Pelvic Floor Surgery No Urinary Symptoms Urge Sensation Incomplete Emptying Falling Out Feeling/Heavy Leakage Size Small Pelvic Clock Pelvic Clock 3-6 Guarding Contraction Ability Voluntary Contraction Moderate Voluntary Relaxation Weak Manual Muscle Testing Left 3 Manual Muscle Testing Right 3 Manual Muscle Testing Anterior 3 Manual Muscle Testing Posterior 3 Muscle Endurance (Seconds) 8 Comments Pelvic Floor Comments left sided levator ani guarding at rest, following a pelvic floor contraction on the left it is difficult to fully relax PT-OP-Q Treatments Start: 01/02/19 16:40 Freq: Status: Active Protocol: Document 01/02/19 16:41 [facility] (Rec: 01/02/19 17:22 [facility] [email or web address]) Therapeutic Exercises Supine Exercises 7 Supine Exercise Name piriformis stretch 5 Supine Exercise Name quick pelvic floor contractions 4 Supine Exercise Name modified pelvic floor squat stretch 3 Supine Exercise Name ball squeeze with pelvic floor contraction 1 Supine Exercise Name pelvic floor isolations 10 second hold time with 10-20 second relaxation Side bilateral PT-OP-T Assessment and Plan Start: 01/02/19 17:23 Freq: Status: Active Protocol: Document 01/02/19 17:23 [facility] (Rec: 01/02/19 17:40 [facility] [email or web address]) Physical Therapy Assessment Rehab Potential Rehabilitation Potential Excellent Evaluation Complexity Number of Personal Factors/Comorbidities 0 Number of Body Systems Impaired 1-2 Clinical Presentation at Evaluation Stable Impairments Impairments Activity Tolerance Pain Soft Tissue Mobility Strength Tone Other Impairments urinary urgency and incontinence Goals Four Impairment tightness of the left greater than right gluteals and piriformis Fci Goal (LTG) Improve flexibility of the piriformis and hip ER and Irma feels independent with a home stretching program LTG Duration 8 weeks Three Impairment left lateral wall of the levator ani guarding Fci Goal (LTG) Irma is able to fully relax the levator ani at rest and is able to relax the left lateral wall following a contraction LTG Duration 8 weeks Two Impairment decreased endurance of the pelvic floor Audio/Video Engineer Goal (LTG) Irma is able to sustain a pelvic floor contraction for 10 seconds in supine for 10 reps to improve support to the bladder and reduce pelvic pressure LTG Duration 8 weeks One Impairment urinary urge incontinence Short Term Goal (STG) Irma is educated on the urge deference technique and is able to use this technique to help reduce leakage STG Duration 5 weeks Audio/Video Engineer Goal (LTG) Irma is able to walk around [facility] without having to stop to void LTG Duration 8 weeks Assessment Summary Assessment Irma returns to physical therapy today with signs and symptoms of urinary urgency and incontinence. She has decreased c/o pelvic pain from last fall when she did PT. She notes the only time she has pelvic discomfort is when she stands up from sitting down with a full bladder. She is using vagifem now and notes this seems to be really helping as well. She has missed about a month of doing her exercises as she was helping her son in [place]. She would like PT again to make sure she is doing everything she can to fully strengthen her pelvic floor. With examination today she is able to facilitate all of her pelvic floor muscles as is 3/ 5 on MMT. She is very guarded on the left lateral wall of the levator ani. Following a pelvic floor contraction she has difficulty relaxing her pelvic floor. She is also quite tight in the the hip musculature as compared to the right. We started working on hip stretches today to help relax her pelvic floor to promote improved voiding along with adding back in her endurance pelvic floor exercises. Physical Therapy Plan Frequency and Duration Frequency of Treatment 1x/Week Duration of Treatment 8 weeks Plan of Care Start Date 01/02/19 Plan of Care End Date 02/27/19 Therapeutic Interventions Therapeutic Interventions Home Exercise Program Manual Therapy Neuromuscular Re-education Self-Care/Home Management Soft Tissue Mobilization Therapeutic Exercises Modalities Biofeedback Next Visit Focus/Plan Next Note Type Treatment Note Next Visit Plan review stretches for the pelvic floor and begin progressing pelvic floor stabilization exercises
--- NOTE | 2019-01-02 17:40 | PT.OPPOC ---
Current Diagnoses Mixed incontinence (01/02/19) Other female genital prolapse (01/02/19) Provider Visit Care Team Role Provider Type Mayela Juarez MD Primary Care Provider Physician Specialty: Family Practice Address: [address] [place] [address], [id number] Email: [email or web address] Audelia Hernandez MD Attending Provider Physician Specialty: HAND GLUER AND SLICER Address: [address] [place] [address], [address] Email: [email or web address] Plan Of Care PT-OP-T Assessment and Plan Start: 01/02/19 17:23 Freq: Status: Active Protocol: Document 01/02/19 17:23 [facility] (Rec: 01/02/19 17:40 [facility] [email or web address]) Physical Therapy Assessment Rehab Potential Rehabilitation Potential Excellent Evaluation Complexity Number of Personal Factors/Comorbidities 0 Number of Body Systems Impaired 1-2 Clinical Presentation at Evaluation Stable Impairments Impairments Activity Tolerance Pain Soft Tissue Mobility Strength Tone Other Impairments urinary urgency and incontinence Goals Four Impairment tightness of the left greater than right gluteals and piriformis Editing Computer Publisher Goal (LTG) Improve flexibility of the piriformis and hip ER and Irma feels independent with a home stretching program LTG Duration 8 weeks Three Impairment left lateral wall of the levator ani guarding Editing Computer Publisher Goal (LTG) Irma is able to fully relax the levator ani at rest and is able to relax the left lateral wall following a contraction LTG Duration 8 weeks Two Impairment decreased endurance of the pelvic floor Editing Computer Publisher Goal (LTG) Irma is able to sustain a pelvic floor contraction for 10 seconds in supine for 10 reps to improve support to the bladder and reduce pelvic pressure LTG Duration 8 weeks One Impairment urinary urge incontinence Short Term Goal (STG) Irma is educated on the urge deference technique and is able to use this technique to help reduce leakage STG Duration 5 weeks Editing Computer Publisher Goal (LTG) Irma is able to walk around [facility] without having to stop to void LTG Duration 8 weeks Assessment Summary Assessment Irma returns to physical therapy today with signs and symptoms of urinary urgency and incontinence. She has decreased c/o pelvic pain from last fall when she did PT. She notes the only time she has pelvic discomfort is when she stands up from sitting down with a full bladder. She is using vagifem now and notes this seems to be really helping as well. She has missed about a month of doing her exercises as she was helping her son in [place]. She would like PT again to make sure she is doing everything she can to fully strengthen her pelvic floor. With examination today she is able to facilitate all of her pelvic floor muscles as is 3/ 5 on MMT. She is very guarded on the left lateral wall of the levator ani. Following a pelvic floor contraction she has difficulty relaxing her pelvic floor. She is also quite tight in the the hip musculature as compared to the right. We started working on hip stretches today to help relax her pelvic floor to promote improved voiding along with adding back in her endurance pelvic floor exercises. Physical Therapy Plan Frequency and Duration Frequency of Treatment 1x/Week Duration of Treatment 8 weeks Plan of Care Start Date 01/02/19 Plan of Care End Date 02/27/19 Therapeutic Interventions Therapeutic Interventions Home Exercise Program Manual Therapy Neuromuscular Re-education Self-Care/Home Management Soft Tissue Mobilization Therapeutic Exercises Modalities Biofeedback Next Visit Focus/Plan Next Note Type Treatment Note Next Visit Plan review stretches for the pelvic floor and begin progressing pelvic floor stabilization exercises Plan of Care Dates Plan of Care Start Date 01/02/19 Plan of Care End Date 02/27/19 Please Sign and Return: I have reviewed this Plan of Care and certify that the skilled therapy services above are required to meet the patient?s needs. Physician Signature Date Printed Name and Credentials Clinical Instructor Signature Printed Name and Credentials
--- NOTE | 2019-01-30 17:49 | PT.OTN ---
Current Diagnoses Mixed incontinence (01/29/19) Other female genital prolapse (01/29/19) Physical Therapy Treatment Note PT-OP-A Visit Information Start: 01/02/19 16:40 Freq: Status: Active Protocol: Document 01/29/19 10:45 [facility] (Rec: 01/30/19 17:49 [facility] [id number]) Out-Patient Physical Therapy Visit Information Visit Information Visit Type Treatment Note Visit Start Time 10:45 Visit Stop Time 11:30 Total Visit Minutes 45 Visit Number 2 Evaluation Information Evaluation Date 01/02/19 PT-OP-B Current Condition Start: 01/02/19 16:40 Freq: Status: Active Protocol: Document 01/02/19 16:41 [facility] (Rec: 01/02/19 17:22 [facility] [email or web address]) Current Condition History of Current Condition Onset Date 2016 Current Complaints c/o urinary urgency and frequency History of Current Condition 63 year old female who was previously seen in PT in June of 2018 with urinary incontinence, pain during intercourse and pelvic pressure. She returns to PT today after helping take care of her son over this past month. She feels that she has not been able to do her exercises due to taking care of her son and would like guidence on resuming a home program. She also began taking vagifem and feels this has helped with her skin irritation and decreased c/o pelvic heavyness since last time she was in PT. Her chief complaint at this time is urinary urgency and leakage . Treatment Goals Patient/Caregiver Goals to decrease leakage and urgency Current Functional Impairments (Reported) Functional Limitations- Recreation/ leaking with exercise and Hobbies needing to stop and void during her am walk around [facility] PT-OP-F Manual Assessment Start: 01/02/19 17:23 Freq: Status: Active Protocol: Document 01/02/19 17:23 [facility] (Rec: 01/02/19 17:40 [facility] [email or web address]) Manual Assessments Soft Tissue Assessment Soft Tissue Mobility Assessment pirifomis tightness left greater than right PT-OP-I Pelvic Floor Start: 01/02/19 16:40 Freq: Status: Active Protocol: Document 01/02/19 16:41 [facility] (Rec: 01/02/19 17:22 [facility] [email or web address]) Pelvic Floor Assessment Urine Pelvic Floor Surgery No Urinary Symptoms Urge Sensation Incomplete Emptying Falling Out Feeling/Heavy Leakage Size Small Pelvic Clock Pelvic Clock 3-6 Guarding Contraction Ability Voluntary Contraction Moderate Voluntary Relaxation Weak Manual Muscle Testing Left 3 Manual Muscle Testing Right 3 Manual Muscle Testing Anterior 3 Manual Muscle Testing Posterior 3 Muscle Endurance (Seconds) 8 Comments Pelvic Floor Comments left sided levator ani guarding at rest, following a pelvic floor contraction on the left it is difficult to fully relax PT-OP-Q Treatments Start: 01/02/19 16:40 Freq: Status: Active Protocol: Document 01/29/19 10:45 [facility] (Rec: 01/30/19 17:49 [facility] [id number]) Therapeutic Exercises Supine Exercises 9 Supine Exercise Name iliopsoas stretch in nathalie test position 8 Supine Exercise Name TA with marches and heel slides 7 Supine Exercise Name piriformis stretch 6 Supine Exercise Name templates for eccentric control and coordination 5 Supine Exercise Name quick pelvic floor contractions 4 Supine Exercise Name modified pelvic floor squat stretch 3 Supine Exercise Name ball squeeze with pelvic floor contraction 2 Supine Exercise Name roll outs with theraband Side bilateral Reps/Minutes 3 sets of 10 reps 1 Supine Exercise Name pelvic floor isolations 10 second hold time with 10-20 second relaxation Side bilateral Sidelying Exercises 1 Sidelying Exercise Name clam shells Other Exercises 6 Other Exercise Name TA with opposite arms and legs 5 Other Exercise Name TA with opp arm and leg lifts 4 Other Exercise Name diaphraghmatic breathing 3 Other Exercise Name quadraped TA facilitation with breathing 2 Other Exercise Name nataly pose Reps/Minutes 1-2 minute hold 1 Other Exercise Name quadraped cat cow Comments pelvic floor relaxation on the inhale and cues to spread sitting bones PT-OP-T Assessment and Plan Start: 01/02/19 17:23 Freq: Status: Active Protocol: Document 01/29/19 10:45 [facility] (Rec: 01/30/19 17:49 [facility] [id number]) Physical Therapy Assessment Assessment Summary Assessment added in iliopsoas stretching today for Irma as she still has a bit of a elevated tone of her pelvic floor at 5.0 uv. Emphasized stretching for home Physical Therapy Plan Frequency and Duration Frequency of Treatment 1x/Week Duration of Treatment 8 weeks Plan of Care Start Date 01/02/19 Plan of Care End Date 02/27/19 Therapeutic Interventions Therapeutic Interventions Home Exercise Program Manual Therapy Neuromuscular Re-education Self-Care/Home Management Soft Tissue Mobilization Therapeutic Exercises Modalities Biofeedback Next Visit Focus/Plan Next Note Type Treatment Note Next Visit Plan Progress pelvic floor stabilization exercises as tolerated
--- NOTE | 2019-02-13 10:05 | PT.OTN ---
Current Diagnoses Mixed incontinence (02/13/19) Other female genital prolapse (02/13/19) Physical Therapy Treatment Note PT-OP-A Visit Information Start: 01/02/19 16:40 Freq: Status: Active Protocol: Document 02/13/19 09:13 [facility] (Rec: 02/13/19 09:56 [facility] [email or web address]) Out-Patient Physical Therapy Visit Information Visit Information Visit Type Treatment Note Visit Start Time 09:00 Visit Stop Time 09:45 Total Visit Minutes 45 Visit Number 3 PT-OP-B Current Condition Start: 01/02/19 16:40 Freq: Status: Active Protocol: Document 01/02/19 16:41 [facility] (Rec: 01/02/19 17:22 [facility] [email or web address]) Current Condition History of Current Condition Onset Date 2016 Current Complaints c/o urinary urgency and frequency History of Current Condition 63 year old female who was previously seen in PT in June of 2018 with urinary incontinence, pain during intercourse and pelvic pressure. She returns to PT today after helping take care of her son over this past month. She feels that she has not been able to do her exercises due to taking care of her son and would like guidence on resuming a home program. She also began taking vagifem and feels this has helped with her skin irritation and decreased c/o pelvic heavyness since last time she was in PT. Her chief complaint at this time is urinary urgency and leakage . Treatment Goals Patient/Caregiver Goals to decrease leakage and urgency Current Functional Impairments (Reported) Functional Limitations- Recreation/ leaking with exercise and Hobbies needing to stop and void during her am walk around [facility] PT-OP-C Subjective Start: 01/02/19 16:40 Freq: Status: Active Protocol: Document 02/13/19 09:13 [facility] (Rec: 02/13/19 09:56 [facility] [email or web address]) OP-PT Subjective Patient Comments Patient Comments Irma reports she does best fitting in her stretches throughout the day with her activities PT-OP-F Manual Assessment Start: 01/02/19 17:23 Freq: Status: Active Protocol: Document 01/02/19 17:23 [facility] (Rec: 01/02/19 17:40 [facility] [email or web address]) Manual Assessments Soft Tissue Assessment Soft Tissue Mobility Assessment pirifomis tightness left greater than right PT-OP-I Pelvic Floor Start: 01/02/19 16:40 Freq: Status: Active Protocol: Document 02/13/19 09:56 [facility] (Rec: 02/13/19 10:05 [facility] [email or web address]) Pelvic Floor Assessment Urine Pelvic Floor Surgery No PT-OP-Q Treatments Start: 01/02/19 16:40 Freq: Status: Active Protocol: Document 02/13/19 09:56 [facility] (Rec: 02/13/19 10:05 [facility] [email or web address]) Therapeutic Exercises Supine Exercises 7 Supine Exercise Name piriformis stretch 6 Supine Exercise Name templates for eccentric control and coordination 5 Supine Exercise Name quick pelvic floor contractions Reps/Minutes x 10 reps 2 sec hold 4 sec relax 4 Supine Exercise Name modified pelvic floor squat stretch 3 Supine Exercise Name ball squeeze with pelvic floor contraction 2 Supine Exercise Name roll outs with theraband Side bilateral Reps/Minutes 3 sets of 10 reps 1 Supine Exercise Name pelvic floor isolations 10 second hold time with 10-20 second relaxation Side bilateral Sidelying Exercises 2 Sidelying Exercise Name sidelying hip abduction, hip circles Reps/Minutes x 10 ea 1 Sidelying Exercise Name clam shells Reps/Minutes 3 x 10 reps Other Exercises 7 Other Exercise Name standing warrior I stretch Reps/Minutes repeat 2-3 times Self-Care/Home Management Treatment Education Patient Education Body Mechanics Home Exercise Program Other Education pelvic floor contraction with sit-stand, body mechanics training with gardening activities tightening pelvic floor with effort of lifting PT-OP-T Assessment and Plan Start: 01/02/19 17:23 Freq: Status: Active Protocol: Document 02/13/19 09:56 [facility] (Rec: 02/13/19 10:05 [facility] [email or web address]) Physical Therapy Assessment Goals Four Impairment tightness of the left greater than right gluteals and piriformis Metal Temperer Goal (LTG) Improve flexibility of the piriformis and hip ER and Irma feels independent with a home stretching program GOOD PROGRESS LTG Duration 8 weeks Three Impairment left lateral wall of the levator ani guarding Longterm Goal (LTG) Irma is able to fully relax the levator ani at rest and is able to relax the left lateral wall following a contraction GOOD PROGRESS, RESTING TONE DECREASED TO 2.0 uv as of 02/13 LTG Duration 8 weeks Two Impairment decreased endurance of the pelvic floor Longterm Goal (LTG) Irma is able to sustain a pelvic floor contraction for 10 seconds in supine for 10 reps to improve support to the bladder and reduce pelvic pressure LTG Duration GOAL MET 02/13/19 One Impairment urinary urge incontinence Short Term Goal (STG) Irma is educated on the urge deference technique and is able to use this technique to help reduce leakage STG Duration GOAL MET Longterm Goal (LTG) Irma is able to walk around [facility] without having to stop to void GOOD PROGRESS LTG Duration 8 weeks Assessment Summary Assessment Irma is making steady progress with both her pelvic floor strengthening and stretching for her hips and pelvic floor. She reports a continued reduction in her symptoms and has been able to add more activity with walking and master gardening. She has been seen for 3 visits in PT and is liking to spread them out so she can work on her progression of exercises on her own and then return for advancing her program. Physical Therapy Plan Frequency and Duration Frequency of Treatment 1x/Week Duration of Treatment 8 weeks Plan of Care Start Date 02/13/19 Plan of Care End Date 05/15/19 Therapeutic Interventions Therapeutic Interventions Home Exercise Program Manual Therapy Neuromuscular Re-education Self-Care/Home Management Soft Tissue Mobilization Therapeutic Exercises Modalities Biofeedback Next Visit Focus/Plan Next Note Type Treatment Note Next Visit Plan progress standing pelvic floor exercises and work on lifting strategies with gardening with pelvic floor recruitment
--- NOTE | 2019-02-13 10:06 | PT.OPPOC ---
Current Diagnoses Mixed incontinence (02/13/19) Other female genital prolapse (02/13/19) Provider Visit Care Team Role Provider Type Mayela Juarez MD Primary Care Provider Physician Specialty: Family Practice Address: [address] [place] [address], [id number] Email: [email or web address] Audelia Hernandez MD Attending Provider Physician Specialty: EXTRACTOR PULLER Address: [address] [place] [address], [id number] Email: [email or web address] Plan Of Care PT-OP-T Assessment and Plan Start: 01/02/19 17:23 Freq: Status: Active Protocol: Document 02/13/19 09:56 [facility] (Rec: 02/13/19 10:05 [facility] [email or web address]) Physical Therapy Assessment Goals Four Impairment tightness of the left greater than right gluteals and piriformis On Car Supervisor Goal (LTG) Improve flexibility of the piriformis and hip ER and Irma feels independent with a home stretching program GOOD PROGRESS LTG Duration 8 weeks Three Impairment left lateral wall of the levator ani guarding Assisted Goal (LTG) Irma is able to fully relax the levator ani at rest and is able to relax the left lateral wall following a contraction GOOD PROGRESS, RESTING TONE DECREASED TO 2.0 uv as of 02/13 LTG Duration 8 weeks Two Impairment decreased endurance of the pelvic floor Assisted Goal (LTG) Irma is able to sustain a pelvic floor contraction for 10 seconds in supine for 10 reps to improve support to the bladder and reduce pelvic pressure LTG Duration GOAL MET 02/13/19 One Impairment urinary urge incontinence Short Term Goal (STG) Irma is educated on the urge deference technique and is able to use this technique to help reduce leakage STG Duration GOAL MET On Car Supervisor Goal (LTG) Irma is able to walk around [facility] without having to stop to void GOOD PROGRESS LTG Duration 8 weeks Assessment Summary Assessment Irma is making steady progress with both her pelvic floor strengthening and stretching for her hips and pelvic floor. She reports a continued reduction in her symptoms and has jakob ble to add more activity with walking and master gardening. She has been seen for 3 visits in PT and is liking to spread them out so she can work on her progression of exercises on her own and then return for advancing her program. Physical Therapy Plan Frequency and Duration Frequency of Treatment 1x/Week Duration of Treatment 8 weeks Plan of Care Start Date 02/13/19 Plan of Care End Date 05/15/19 Therapeutic Interventions Therapeutic Interventions Home Exercise Program Manual Therapy Neuromuscular Re-education Self-Care/Home Management Soft Tissue Mobilization Therapeutic Exercises Modalities Biofeedback Next Visit Focus/Plan Next Note Type Treatment Note Next Visit Plan progress standing pelvic floor exercises and work on lifting strategies with gardening with pelvic floor recruitment Plan of Care Dates Plan of Care Start Date 02/13/19 Plan of Care End Date 05/15/19 Please Sign and Return: I have reviewed this Plan of Care and certify that the skilled therapy services above are required to meet the patient?s needs. Physician Signature Date Printed Name and Credentials Clinical Instructor Signature Printed Name and Credentials
--- NOTE | 2019-02-20 17:16 | PT.OTN ---
Current Diagnoses Mixed incontinence (02/20/19) Other female genital prolapse (02/20/19) Physical Therapy Treatment Note PT-OP-A Visit Information Start: 01/02/19 16:40 Freq: Status: Active Protocol: Document 02/13/19 09:13 [facility] (Rec: 02/13/19 09:56 [facility] [email or web address]) Out-Patient Physical Therapy Visit Information Visit Information Visit Type Treatment Note Visit Start Time 09:00 Visit Stop Time 09:45 Total Visit Minutes 45 Visit Number 3 PT-OP-B Current Condition Start: 01/02/19 16:40 Freq: Status: Active Protocol: Document 01/02/19 16:41 [facility] (Rec: 01/02/19 17:22 [facility] [email or web address]) Current Condition History of Current Condition Onset Date 2016 Current Complaints c/o urinary urgency and frequency History of Current Condition 63 year old female who was previously seen in PT in June of 2018 with urinary incontinence, pain during intercourse and pelvic pressure. She returns to PT today after helping take care of her son over this past month. She feels that she has not been able to do her exercises due to taking care of her son and would like guidence on resuming a home program. She also began taking vagifem and feels this has helped with her skin irritation and decreased c/o pelvic heavyness since last time she was in PT. Her chief complaint at this time is urinary urgency and leakage . Treatment Goals Patient/Caregiver Goals to decrease leakage and urgency Current Functional Impairments (Reported) Functional Limitations- Recreation/ leaking with exercise and Hobbies needing to stop and void during her am walk around [facility] PT-OP-C Subjective Start: 01/02/19 16:40 Freq: Status: Active Protocol: Document 02/13/19 09:13 [facility] (Rec: 02/13/19 09:56 [facility] [email or web address]) OP-PT Subjective Patient Comments Patient Comments Irma reports she does best fitting in her stretches throughout the day with her activities PT-OP-F Manual Assessment Start: 01/02/19 17:23 Freq: Status: Active Protocol: Document 01/02/19 17:23 [facility] (Rec: 01/02/19 17:40 [facility] [email or web address]) Manual Assessments Soft Tissue Assessment Soft Tissue Mobility Assessment pirifomis tightness left greater than right PT-OP-I Pelvic Floor Start: 01/02/19 16:40 Freq: Status: Active Protocol: Document 02/13/19 09:56 [facility] (Rec: 02/13/19 10:05 [facility] [email or web address]) Pelvic Floor Assessment Urine Pelvic Floor Surgery No PT-OP-Q Treatments Start: 01/02/19 16:40 Freq: Status: Active Protocol: Document 02/20/19 17:08 [facility] (Rec: 02/20/19 17:12 [facility] [email or web address]) Therapeutic Exercises Supine Exercises 7 Supine Exercise Name piriformis stretch 6 Supine Exercise Name templates for eccentric control and coordination 5 Supine Exercise Name quick pelvic floor contractions Reps/Minutes x 10 reps 2 sec hold 4 sec relax 4 Supine Exercise Name modified pelvic floor squat stretch 3 Supine Exercise Name ball squeeze with pelvic floor contraction 1 Supine Exercise Name pelvic floor isolations 10 second hold time with 10-20 second relaxation Side bilateral Standing Exercises 3 Standing Exercise Name squat with side steps 2 Standing Exercise Name standing lunges 1 Standing Exercise Name standing squats Comments pelvic floor engagement on return to stand Self-Care/Home Management Treatment Education Patient Education Home Exercise Program Posture Other Education working on squats with pelvic floor engagement, transfering flower pots with pelvic floor engagement PT-OP-T Assessment and Plan Start: 01/02/19 17:23 Freq: Status: Active Protocol: Document 02/20/19 17:12 [facility] (Rec: 02/20/19 17:15 [facility] [email or web address]) Physical Therapy Assessment Assessment Summary Assessment Improved resting tone today with better relaxed awareness of the pelvic floor. Good tolerance for added squats and lunges today as well Physical Therapy Plan Frequency and Duration Frequency of Treatment 1x/Week Duration of Treatment 8 weeks Plan of Care Start Date 02/13/19 Plan of Care End Date 05/15/19 Therapeutic Interventions Therapeutic Interventions Home Exercise Program Manual Therapy Neuromuscular Re-education Self-Care/Home Management Soft Tissue Mobilization Therapeutic Exercises Modalities Biofeedback Next Visit Focus/Plan Next Note Type Treatment Note Next Visit Plan continue to progress upright dynamic exercises as Irma can tolerate for her pelvic floor . Review squeeze before her triggers
--- NOTE | 2019-03-13 12:55 | PT.OTN ---
Current Diagnoses Mixed incontinence (03/13/19) Other female genital prolapse (03/13/19) Physical Therapy Treatment Note PT-OP-A Visit Information Start: 01/02/19 16:40 Freq: Status: Active Protocol: Document 03/13/19 12:48 [facility] (Rec: 03/13/19 12:54 [facility] [email or web address]) Out-Patient Physical Therapy Visit Information Visit Information Visit Type Treatment Note Visit Start Time 09:00 Visit Stop Time 09:45 Total Visit Minutes 45 Visit Number 5 Evaluation Information Evaluation Date 01/02/19 PT-OP-B Current Condition Start: 01/02/19 16:40 Freq: Status: Active Protocol: Document 01/02/19 16:41 [facility] (Rec: 01/02/19 17:22 [facility] [email or web address]) Current Condition History of Current Condition Onset Date 2016 Current Complaints c/o urinary urgency and frequency History of Current Condition 63 year old female who was previously seen in PT in June of 2018 with urinary incontinence, pain during intercourse and pelvic pressure. She returns to PT today after helping take care of her son over this past month. She feels that she has not been able to do her exercises due to taking care of her son and would like guidence on resuming a home program. She also began taking vagifem and feels this has helped with her skin irritation and decreased c/o pelvic heavyness since last time she was in PT. Her chief complaint at this time is urinary urgency and leakage . Treatment Goals Patient/Caregiver Goals to decrease leakage and urgency Current Functional Impairments (Reported) Functional Limitations- Recreation/ leaking with exercise and Hobbies needing to stop and void during her am walk around [facility] PT-OP-C Subjective Start: 01/02/19 16:40 Freq: Status: Active Protocol: Document 03/13/19 09:01 [facility] (Rec: 03/13/19 09:06 [facility] [email or web address]) OP-PT Subjective Patient Comments Patient Comments Had a breakthrough this week as the visual of a girdle really helped her to visualize her pelvic floor and abdominal muscles Patient Reported Progress Improving PT-OP-F Manual Assessment Start: 01/02/19 17:23 Freq: Status: Active Protocol: Document 01/02/19 17:23 [facility] (Rec: 01/02/19 17:40 [facility] [email or web address]) Manual Assessments Soft Tissue Assessment Soft Tissue Mobility Assessment pirifomis tightness left greater than right PT-OP-I Pelvic Floor Start: 01/02/19 16:40 Freq: Status: Active Protocol: Document 02/13/19 09:56 [facility] (Rec: 02/13/19 10:05 [facility] [email or web address]) Pelvic Floor Assessment Urine Pelvic Floor Surgery No PT-OP-Q Treatments Start: 01/02/19 16:40 Freq: Status: Active Protocol: Document 03/13/19 12:54 [facility] (Rec: 03/13/19 12:55 [facility] [email or web address]) Self-Care/Home Management Treatment Education Patient Education Body Mechanics Home Exercise Program PT-OP-T Assessment and Plan Start: 01/02/19 17:23 Freq: Status: Active Protocol: Document 03/13/19 12:48 [facility] (Rec: 03/13/19 12:54 [facility] [email or web address]) Physical Therapy Assessment Assessment Summary Assessment Good increase in awareness today of the pelvic floor and with standing and lifting activities Physical Therapy Plan Frequency and Duration Frequency of Treatment 1x/Week Duration of Treatment 8 weeks Plan of Care Start Date 02/13/19 Plan of Care End Date 05/15/19 Therapeutic Interventions Therapeutic Interventions Home Exercise Program Manual Therapy Neuromuscular Re-education Self-Care/Home Management Soft Tissue Mobilization Therapeutic Exercises Modalities Biofeedback Next Visit Focus/Plan Next Note Type Treatment Note Next Visit Plan continue to progress upright dynamic exercises as Irma can tolerate for her pelvic floor . Review squeeze before her triggers
--- NOTE | 2019-03-24 12:40 | PT.OTN ---
Current Diagnoses Mixed incontinence (03/20/19) Other female genital prolapse (03/20/19) Physical Therapy Treatment Note PT-OP-A Visit Information Start: 01/02/19 16:40 Freq: Status: Active Protocol: Document 03/20/19 15:15 [facility] (Rec: 03/24/19 12:40 [facility] [email or web address]) Out-Patient Physical Therapy Visit Information Visit Information Visit Type Treatment Note Visit Start Time 15:15 Visit Stop Time 16:00 Total Visit Minutes 45 Visit Number 6 Evaluation Information Evaluation Date 01/02/19 PT-OP-B Current Condition Start: 01/02/19 16:40 Freq: Status: Active Protocol: Document 01/02/19 16:41 [facility] (Rec: 01/02/19 17:22 [facility] [email or web address]) Current Condition History of Current Condition Onset Date 2016 Current Complaints c/o urinary urgency and frequency History of Current Condition 63 year old female who was previously seen in PT in June of 2018 with urinary incontinence, pain during intercourse and pelvic pressure. She returns to PT today after helping take care of her son over this past month. She feels that she has not been able to do her exercises due to taking care of her son and would like guidence on resuming a home program. She also began taking vagifem and feels this has helped with her skin irritation and decreased c/o pelvic heavyness since last time she was in PT. Her chief complaint at this time is urinary urgency and leakage . Treatment Goals Patient/Caregiver Goals to decrease leakage and urgency Current Functional Impairments (Reported) Functional Limitations- Recreation/ leaking with exercise and Hobbies needing to stop and void during her am walk around [facility] PT-OP-C Subjective Start: 01/02/19 16:40 Freq: Status: Active Protocol: Document 03/20/19 15:15 [facility] (Rec: 03/24/19 12:40 [facility] [email or web address]) OP-PT Subjective Patient Comments Patient Comments Irma reports she has been doing really good with her exercises and has been thinking about her pelvic girdle PT-OP-F Manual Assessment Start: 01/02/19 17:23 Freq: Status: Active Protocol: Document 01/02/19 17:23 [facility] (Rec: 01/02/19 17:40 [facility] [email or web address]) Manual Assessments Soft Tissue Assessment Soft Tissue Mobility Assessment pirifomis tightness left greater than right PT-OP-I Pelvic Floor Start: 01/02/19 16:40 Freq: Status: Active Protocol: Document 02/13/19 09:56 [facility] (Rec: 02/13/19 10:05 [facility] [email or web address]) Pelvic Floor Assessment Urine Pelvic Floor Surgery No PT-OP-Q Treatments Start: 01/02/19 16:40 Freq: Status: Active Protocol: Document 03/20/19 15:15 [facility] (Rec: 03/24/19 12:40 [facility] [email or web address]) Therapeutic Exercises Supine Exercises 9 Supine Exercise Name iliopsoas stretch in nathalie test position 8 Supine Exercise Name TA with marches and heel slides 7 Supine Exercise Name piriformis stretch 6 Supine Exercise Name templates for eccentric control and coordination 5 Supine Exercise Name quick pelvic floor contractions Reps/Minutes x 10 reps 2 sec hold 4 sec relax 4 Supine Exercise Name modified pelvic floor squat stretch 3 Supine Exercise Name ball squeeze with pelvic floor contraction 2 Supine Exercise Name roll outs with theraband Side bilateral Reps/Minutes 3 sets of 10 reps 1 Supine Exercise Name pelvic floor isolations 10 second hold time with 10-20 second relaxation Side bilateral Prone Exercises 1 Prone Exercise Name supine stretch over the foam roll Sidelying Exercises 2 Sidelying Exercise Name sidelying hip abduction, hip circles Reps/Minutes x 10 ea 1 Sidelying Exercise Name clam shells Reps/Minutes 3 x 10 reps Standing Exercises 4 Standing Exercise Name standing pelvic floor engagement with ball squeeze 1 Standing Exercise Name standing squats Comments pelvic floor engagement on return to stand Other Exercises 6 Other Exercise Name TA engagement in quadraped 5 Other Exercise Name TA with opp arm and leg lifts 4 Other Exercise Name diaphraghmatic breathing 3 Other Exercise Name quadraped TA facilitation with breathing 2 Other Exercise Name nataly pose Reps/Minutes 1-2 minute hold 1 Other Exercise Name quadraped cat cow Comments pelvic floor relaxation on the inhale and cues to spread sitting bones PT-OP-T Assessment and Plan Start: 01/02/19 17:23 Freq: Status: Active Protocol: Document 03/20/19 15:15 [facility] (Rec: 03/24/19 12:40 [facility] [email or web address]) Physical Therapy Assessment Assessment Summary Assessment Average today on EMG biofeedback is 14.7 with a max of 29.6 Physical Therapy Plan Frequency and Duration Frequency of Treatment 1x/Week Duration of Treatment 8 weeks Plan of Care Start Date 02/13/19 Plan of Care End Date 05/15/19 Therapeutic Interventions Therapeutic Interventions Home Exercise Program Manual Therapy Neuromuscular Re-education Self-Care/Home Management Soft Tissue Mobilization Therapeutic Exercises Modalities Biofeedback Next Visit Focus/Plan Next Note Type Treatment Note Next Visit Plan continue to progress upright dynamic exercises as Irma can tolerate for her pelvic floor . Review squeeze before her triggers
--- NOTE | 2019-04-14 08:01 | PT.OTN ---
Current Diagnoses Mixed incontinence (04/10/19) Other female genital prolapse (04/10/19) Physical Therapy Treatment Note PT-OP-A Visit Information Start: 01/02/19 16:40 Freq: Status: Active Protocol: Document 04/10/19 10:33 AMH (Rec: 04/10/19 10:34 AMH [email or web address]) Out-Patient Physical Therapy Visit Information Visit Information Visit Type Treatment Note Visit Start Time 09:45 Visit Stop Time 10:30 Total Visit Minutes 45 Visit Number 7 PT-OP-B Current Condition Start: 01/02/19 16:40 Freq: Status: Active Protocol: Document 01/02/19 16:41 AMH (Rec: 01/02/19 17:22 AMH [email or web address]) Current Condition History of Current Condition Onset Date 2016 Current Complaints c/o urinary urgency and frequency History of Current Condition 63 year old female who was previously seen in PT in June of 2018 with urinary incontinence, pain during intercourse and pelvic pressure. She returns to PT today after helping take care of her son over this past month. She feels that she has not been able to do her exercises due to taking care of her son and would like guidence on resuming a home program. She also began taking vagifem and feels this has helped with her skin irritation and decreased c/o pelvic heavyness since last time she was in PT. Her chief complaint at this time is urinary urgency and leakage . Treatment Goals Patient/Caregiver Goals to decrease leakage and urgency Current Functional Impairments (Reported) Functional Limitations- Recreation/ leaking with exercise and Hobbies needing to stop and void during her am walk around [facility] PT-OP-C Subjective Start: 01/02/19 16:40 Freq: Status: Active Protocol: Document 04/10/19 09:45 AMH (Rec: 04/14/19 08:01 AMH [email or web address]) OP-PT Subjective Patient Comments Patient Comments Irma reports she has not been sleeping well, she is not getting her REM sleep per her sleep study and she feels very tired. She has been doing her pelvic floor work when she can Patient Reported Progress Improving PT-OP-F Manual Assessment Start: 01/02/19 17:23 Freq: Status: Active Protocol: Document 01/02/19 17:23 AMH (Rec: 01/02/19 17:40 AMH [email or web address]) Manual Assessments Soft Tissue Assessment Soft Tissue Mobility Assessment pirifomis tightness left greater than right PT-OP-I Pelvic Floor Start: 01/02/19 16:40 Freq: Status: Active Protocol: Document 02/13/19 09:56 AMH (Rec: 02/13/19 10:05 AMH [email or web address]) Pelvic Floor Assessment Urine Pelvic Floor Surgery No PT-OP-Q Treatments Start: 01/02/19 16:40 Freq: Status: Active Protocol: Document 04/10/19 09:45 AMH (Rec: 04/14/19 08:01 AMH [email or web address]) Therapeutic Exercises Supine Exercises 9 Supine Exercise Name iliopsoas stretch in nathalie test position 8 Supine Exercise Name TA with marches and heel slides 7 Supine Exercise Name piriformis stretch 6 Supine Exercise Name templates for eccentric control and coordination 5 Supine Exercise Name quick pelvic floor contractions Reps/Minutes x 10 reps 2 sec hold 4 sec relax 4 Supine Exercise Name modified pelvic floor squat stretch 3 Supine Exercise Name ball squeeze with pelvic floor contraction 2 Supine Exercise Name roll outs with theraband Side bilateral Reps/Minutes 3 sets of 10 reps 1 Supine Exercise Name pelvic floor isolations 10 second hold time with 10-20 second relaxation Side bilateral Prone Exercises 1 Prone Exercise Name supine stretch over the foam roll Sidelying Exercises 2 Sidelying Exercise Name sidelying hip abduction, hip circles Reps/Minutes x 10 ea 1 Sidelying Exercise Name clam shells Reps/Minutes 3 x 10 reps Standing Exercises 4 Standing Exercise Name standing pelvic floor engagement with ball squeeze 3 Standing Exercise Name squat with side steps 2 Standing Exercise Name standing lunges Other Exercises 6 Other Exercise Name TA engagement in quadraped 5 Other Exercise Name TA with opp arm and leg lifts 4 Other Exercise Name diaphraghmatic breathing 3 Other Exercise Name quadraped TA facilitation with breathing 2 Other Exercise Name nataly pose Reps/Minutes 1-2 minute hold 1 Other Exercise Name quadraped cat cow Comments pelvic floor relaxation on the inhale and cues to spread sitting bones PT-OP-T Assessment and Plan Start: 01/02/19 17:23 Freq: Status: Active Protocol: Document 04/10/19 09:45 AMH (Rec: 04/14/19 08:01 AMH [email or web address]) Physical Therapy Assessment Assessment Summary Assessment Resting tone was at 2.1 today which is a little higher for Irma. She was more fatigued today with her pelvic floor. She reports overall decreased symptoms and is showing more independence with her home program Physical Therapy Plan Frequency and Duration Frequency of Treatment 1x/Week Duration of Treatment 8 weeks Plan of Care Start Date 02/13/19 Plan of Care End Date 05/15/19 Next Visit Focus/Plan Next Note Type Treatment Note Next Visit Plan Continue for one additional visit to ensure she is independent with her home exercise program.
--- NOTE | 2019-04-20 17:51 | PT.OTN ---
Current Diagnoses Mixed incontinence (04/17/19) Other female genital prolapse (04/17/19) Physical Therapy Treatment Note PT-OP-A Visit Information Start: 01/02/19 16:40 Freq: Status: Active Protocol: Document 04/17/19 09:45 AMH (Rec: 04/20/19 17:50 AMH [email or web address]) Out-Patient Physical Therapy Visit Information Visit Information Visit Type Treatment Note Visit Start Time 09:45 Visit Stop Time 10:30 Total Visit Minutes 45 Visit Number 8 Evaluation Information Evaluation Date 01/02/19 PT-OP-B Current Condition Start: 01/02/19 16:40 Freq: Status: Active Protocol: Document 01/02/19 16:41 AMH (Rec: 01/02/19 17:22 AMH [email or web address]) Current Condition History of Current Condition Onset Date 2016 Current Complaints c/o urinary urgency and frequency History of Current Condition 63 year old female who was previously seen in PT in June of 2018 with urinary incontinence, pain during intercourse and pelvic pressure. She returns to PT today after helping take care of her son over this past month. She feels that she has not been able to do her exercises due to taking care of her son and would like guidence on resuming a home program. She also began taking vagifem and feels this has helped with her skin irritation and decreased c/o pelvic heavyness since last time she was in PT. Her chief complaint at this time is urinary urgency and leakage . Treatment Goals Patient/Caregiver Goals to decrease leakage and urgency Current Functional Impairments (Reported) Functional Limitations- Recreation/ leaking with exercise and Hobbies needing to stop and void during her am walk around [facility] PT-OP-C Subjective Start: 01/02/19 16:40 Freq: Status: Active Protocol: Document 04/17/19 09:45 AMH (Rec: 04/20/19 17:50 AMH [email or web address]) OP-PT Subjective Patient Comments Patient Comments Irma reports she is feeling good with her home exercise program. Her pelvic floor symptoms are decreased overall and she is happy with her progress. PT-OP-F Manual Assessment Start: 01/02/19 17:23 Freq: Status: Active Protocol: Document 01/02/19 17:23 AMH (Rec: 01/02/19 17:40 AMH [email or web address]) Manual Assessments Soft Tissue Assessment Soft Tissue Mobility Assessment pirifomis tightness left greater than right PT-OP-I Pelvic Floor Start: 01/02/19 16:40 Freq: Status: Active Protocol: Document 02/13/19 09:56 AMH (Rec: 02/13/19 10:05 AMH [email or web address]) Pelvic Floor Assessment Urine Pelvic Floor Surgery No PT-OP-Q Treatments Start: 01/02/19 16:40 Freq: Status: Active Protocol: Document 04/17/19 09:45 AMH (Rec: 04/20/19 17:50 AMH [email or web address]) Therapeutic Exercises Supine Exercises 9 Supine Exercise Name iliopsoas stretch in nathalie test position 8 Supine Exercise Name TA with marches and heel slides 7 Supine Exercise Name piriformis stretch 6 Supine Exercise Name templates for eccentric control and coordination 5 Supine Exercise Name quick pelvic floor contractions Reps/Minutes x 10 reps 2 sec hold 4 sec relax 4 Supine Exercise Name modified pelvic floor squat stretch 3 Supine Exercise Name ball squeeze with pelvic floor contraction 2 Supine Exercise Name roll outs with theraband Side bilateral Reps/Minutes 3 sets of 10 reps 1 Supine Exercise Name pelvic floor isolations 10 second hold time with 10-20 second relaxation Side bilateral Prone Exercises 1 Prone Exercise Name supine stretch over the foam roll Sidelying Exercises 2 Sidelying Exercise Name sidelying hip abduction, hip circles Reps/Minutes x 10 ea 1 Sidelying Exercise Name clam shells Reps/Minutes 3 x 10 reps Standing Exercises 4 Standing Exercise Name standing pelvic floor engagement with ball squeeze 3 Standing Exercise Name squat with side steps Other Exercises 6 Other Exercise Name TA engagement in quadraped 5 Other Exercise Name TA with opp arm and leg lifts 4 Other Exercise Name diaphraghmatic breathing 3 Other Exercise Name quadraped TA facilitation with breathing 2 Other Exercise Name nataly pose Reps/Minutes 1-2 minute hold 1 Other Exercise Name quadraped cat cow Comments pelvic floor relaxation on the inhale and cues to spread sitting bones PT-OP-T Assessment and Plan Start: 01/02/19 17:23 Freq: Status: Active Protocol: Document 04/17/19 09:45 AMH (Rec: 04/20/19 17:50 AMH [email or web address]) Physical Therapy Assessment Goals Four Impairment tightness of the left greater than right gluteals and piriformis Fci Goal (LTG) Improve flexibility of the piriformis and hip ER and Irma feels independent with a home stretching program GOAL MET 04/17/19 GOOD PROGRESS LTG Duration 8 weeks Three Impairment left lateral wall of the levator ani guarding Fci Goal (LTG) Irma is able to fully relax the levator ani at rest and is able to relax the left lateral wall following a contraction *GOAL MET 04/17/19 GOOD PROGRESS, RESTING TONE DECREASED TO 2.0 uv as of 02/13 LTG Duration 8 weeks Two Impairment decreased endurance of the pelvic floor Paid Internship Goal (LTG) Irma is able to sustain a pelvic floor contraction for 10 seconds in supine for 10 reps to improve support to the bladder and reduce pelvic pressure LTG Duration GOAL MET 02/13/19 One Impairment urinary urge incontinence Short Term Goal (STG) Irma is educated on the urge deference technique and is able to use this technique to help reduce leakage STG Duration GOAL MET Paid Internship Goal (LTG) Irma is able to walk around [facility] without having to stop to void GOAL MET 04/17/19 GOOD PROGRESS LTG Duration 8 weeks Progress Towards Goals Progress Towards Goals Goals Met Assessment Summary Assessment Irma has made good progress with physical therapy and has met all her established goals. She will be discharged to a Independent home program at this time. Thank you for this referral Physical Therapy Plan Discharge Physical Therapy Discharge Reasons Goals Met
== END 2019-04-21 09:42 | disposition home or self-care (01) ==
LOC: PHYS 09:45
PROVIDERS: PCP Family Medicine; Visit Provider Obstetrics & Gynecology
DX: N39.46 Mixed incontinence (principal); N81.89 Other female genital prolapse
CPT/HCPCS: 97110; 97161; 97535

== ENCOUNTER → 2019-11-11 07:14 | Outpatient (CLI) | payer OTHER, SELFPAY ==
[2019-11-11 07:39] LABS: Add Manual Diff / Slide Review NO; Basophils Absolute Auto 100 /uL (0-100); Basophils Percent Auto 1.4 % (0-2); Eosinophils Absolute Auto 200 /uL (0-450); Eosinophils Percent Auto 3.6 % (2-4); Hematocrit 36.3 % (36-46); Hemoglobin 12.5 g/dL (12.0-16.0); Lymphocytes Absolute Auto 1900 /uL (1100-4500); Lymphocytes Percent Auto 42.2 % (25-40); Mean Corpuscular HGB Conc 34.3 % (30-36); Mean Corpuscular Hemoglobin 31.1 PG (26-34); Mean Corpuscular Volume 90.8 fL (80-100); Monocytes Absolute Auto 400 /uL (0-900); Monocytes Percent Auto 8.1 % (3-14); Neutrophils Absolute Auto 2000 /uL (1500-7000); Neutrophils Percent Auto 44.7 % (50-75); Platelet Count 183 X10^3/uL (150-400); Red Cell Distribution Width 12.1 % (11.6-14.8); White Blood Cell Count 4.6 X10^3/uL (4.5-11.0)
[2019-11-11 08:01] LABS: BUN Creatinine Ratio 26.7 (6-22); Blood Urea Nitrogen 16 mg/dL (7-17); Calcium 9.6 mg/dL (8.4-10.2); Carbon Dioxide 27 mmol/L (22-32); Chloride 106 mmol/L (98-107); Cholesterol 173 mg/dL (140-199); Estimated Glomerular Filt Rate > 60.0 mL/min (>60); Glucose 90 mg/dL (80-110); HDL Cholesterol 51 mg/dL (40-60); HEMOLYSIS < 15 (0-50); LDL Cholesterol Calculated 92 mg/dL (<100); Sodium 140 mmol/L (137-145); Triglycerides 148 mg/dL (35-150)
== END ==
PROVIDERS: PCP Family Medicine; Visit Provider Family Medicine
DX: Z13.0 Encounter for screening for diseases of the blood and blood-forming organs and certain disorders involving the immune mechanism (principal); Z13.220 Encounter for screening for lipoid disorders; M32.19 Other organ or system involvement in systemic lupus erythematosus
CPT/HCPCS: 36415; 80048; 80061; 85025

== ENCOUNTER 2021-03-28 19:05 | Emergency (ER) | payer OTHER, SELFPAY ==
[2021-03-28 19:21] VITALS: BP 135/81; PULSE 83; RESP 16; TEMP 36.6; O2SAT 100; BMI 24.0
--- NOTE | 2021-03-28 19:28 | DI.RAD.S_ITS ---
PROCEDURE: XR FINGER LT MIN 2V INDICATIONS: cut with garden jorge TECHNIQUE: AP hand, 2 views of the 2nd finger(s) acquired. COMPARISON: None. FINDINGS: Bones: No fractures or dislocations. No suspicious bony lesions. Soft tissues: No suspicious soft tissue calcifications. IMPRESSION: No acute osseous abnormalities. No radiopaque foreign body. Dictated by: Mary Lou Mcbride M.D. on 03/28/2021 at 20:40 Approved by: Mary Lou Mcbride M.D. on 03/28/2021 at 20:41
[2021-03-28] MEDS: LIDO 1%/SOD BICARB 8.4% (10ML) 10 ML SYRINGE INJ (21:02)
[2021-03-28] MEDS: ACETAMINOPHEN 325 MG TABLET 975 MG PO (21:02)
[2021-03-28] MEDS: IBUPROFEN 400 MG TABLET 800 MG PO (21:02)
[2021-03-28] MEDS: LIDOCAINE/PRILOCAINE 5 GM TOP (21:02)
--- NOTE | 2021-03-28 21:16 | ED.WOUNDLAC ---
HPI - Wound/Laceration General Chief Complaint: Wound/Laceration Stated Complaint: INDEX FINGER LACERATION LEFT HAND Time Seen by Provider: 03/28/21 20:48 Source: patient Mode of arrival: Ambulatory Limitations: no limitations History of Present Illness HPI narrative: This is a pleasant 66-year-old female who was using her pruning jorge when she accidentally cut her index finger on her left hand. Patient states it has been quite painful. She states it blood significantly. She states her sugars are pretty clean and her hands were very clean she had just removed her gloves. Patient denies any loss of sensation. She denies any other injuries. She believes her tetanus is up-to-date. She does not take any medications regularly. She denies any allergies to medications. Related Data Home Medications Medication Instructions Recorded Confirmed cholecalciferol (vitamin D3) #0 01/08/17 08/12/19 [Vitamin D3] cyanocobalamin (vitamin B-12) #0 01/08/17 08/12/19 [Vitamin B-12] ibuprofen [Advil Liqui-Gel] 1 cap PO PRN PRN #0 01/08/17 08/12/19 Respironics Dreamstation CPAP #1 ea 07/15/19 08/12/19 Allergies Allergy/AdvReac Type Severity Reaction Status Date / Time No Known Allergies Allergy Uncoded 11/12/19 14:30 Review of Systems Review of Systems ROS Unobtainable: All systems reviewed & are unremarkable except as noted in HPI and below Patient History Medical History Abnormal Pap smear of cervix (2012) Cervical cancer (2012) Cervical intraepithelial neoplasia grade 1 (02/21/17) Herpes (1999) HPV (human papilloma virus) infection (2012) Insomnia Lupus (2014) Obstructive sleep apnea of adult Sjogren's syndrome (2014) Systemic lupus erythematosus with other organ involvement (01/08/17) Surgical History Anesthesia Status post appendectomy (1972) Status post delivery (1981) Status post delivery (1983) Family History Mother Lung cancer Stroke Son Diabetes mellitus Grandfather Throat cancer Grandmother No problems noted. Social History Smoking Status: Never smoker Smoking Status: Never smoker Exam Narrative Exam Narrative: GENERAL: Alert and oriented x three, well-nourished female in mild distress. HEENT: Head normocephalic, atraumatic, EOMI, pupils reactive, face symmetric, moist mucous membranes NECK: Supple, full range of motion EXTREMITIES: Normal range of motion, no clubbing or edema. Neurovascularly intact. Patient has a avulsion laceration on the radial side of her left index finger just adjacent to the nail which is deep approximately 0.4 cm in length. Does not appear to have injured the bone. Patient does have sensation to light touch. She has full range of motion. No nail involvement noted. Area is well aligned but does appear deep on examination. NEUROLOGICAL: Cranial nerves II through XII grossly intact. Moving all extremities SKIN: Warm, dry, no petechiae, no rashes or lesions. Initial Vital Signs Initial Vital Signs: Vital Signs Temperature 97.8 F 03/28/21 19:21 Pulse Rate 83 03/28/21 19:21 Respiratory Rate 16 03/28/21 19:21 Blood Pressure 135/81 03/28/21 19:21 Pulse Oximetry 100 03/28/21 19:21 Procedures Laceration Repair Laceration 1: Site: other (finger) Side (If applicable): left Size (cm): 0.5 Description: flap and clean Depth: simple, single layer Local Anesthetic: lidocaine 1% Amount of anesthesia used (mL): 1.5 Pre-repair: irrigated extensively Skin layer closed with: nylon Size (cm): 5-0 Number of sutures: 4 Technique: simple, interrupted Course Orders Ordered: ED Orders 03/28/21 19:28 XR finger LT min 2V Stat Discontinued Medications Acetaminophen (Acetaminophen 325 Mg Tablet) 975 mg PO NOW ONE Stop: 03/28/21 20:52 Last Admin: 03/28/21 21:02 Dose: 975 mg Documented by: PAIGE Hydrocodone Bitart/Acetaminophen (Hydrocodone/Acet 5/325 Prepack) 1 bottle MISC SEEINSTR ONE Stop: 03/28/21 23:18 Last Admin: 03/28/21 23:20 Dose: 1 bottle Documented by: PAIGE Diphtheria/Tetanus/Acell Pertussis (Tet,Diph,Pertuss(Acell),Vac/Pf 0.5 Ml Syringe) 0.5 ml IM .ONCE ONE Stop: 03/28/21 20:20 Last Admin: 03/28/21 20:30 Dose: Not Given Documented by: NERISSA Ibuprofen (Ibuprofen 400 Mg Tablet) 800 mg PO NOW ONE Stop: 03/28/21 20:52 Last Admin: 03/28/21 21:02 Dose: 800 mg Documented by: PAIGE Ketorolac Tromethamine (Ketorolac 30 Mg/Ml Vial) 30 mg IM NOW ONE Stop: 03/28/21 22:35 Last Admin: 03/28/21 22:39 Dose: 30 mg Documented by: PAIGE Lidocaine/Prilocaine (Lidocaine/Prilocaine 5 Gm) 5 gm TOP NOW ONE Stop: 03/28/21 20:52 Last Admin: 03/28/21 21:02 Dose: 5 gm Documented by: PAIGE Lidocaine/Sodium Bicarbonate (Lido 1%/Sod Bicarb 8.4% (10ml) 10 Ml Syringe) 10 ml INJ NOW ONE Stop: 03/28/21 20:52 Last Admin: 03/28/21 21:02 Dose: 10 ml Documented by: PAIGE Vital Signs Vital signs: Vital Signs - 8 hr 03/28/21 19:21 Temperature 97.8 F Pulse Rate 83 Respiratory Rate 16 Blood Pressure 135/81 Pulse Oximetry 100 MDM - Wound/Laceration Imaging Data Extremity x-ray #1: Radiologist's Impression: [address] [id number] ReportSigned Patient: Irma Ortiz LMR#: [id number]: 7Acct:[id number]/Sex: 66 / FDate of Service: 03/28/21Loc: EDAccession Number: [id number] Procedure: XR finger LT min 2V Ordering Provider: Brooke Collins D.O. PROCEDURE: XR FINGER LT MIN 2V INDICATIONS: cut with garden jorge TECHNIQUE: AP hand, 2 views of the 2nd finger(s) acquired. COMPARISON: None. FINDINGS: Bones: No fractures or dislocations. No suspicious bony lesions. Soft tissues: No suspicious soft tissue calcifications. IMPRESSION: No acute osseous abnormalities. No radiopaque foreign body. Dictated by: Mary Lou Mcbride M.D. on 03/28/2021 at 20:40 Approved by: Mary Lou Mcbride M.D. on 03/28/2021 at 20:41 Discharge Plan Departure Patient Disposition: Home Clinical Impression: Finger laceration Qualifiers: Encounter type: initial encounter Finger: index finger Damage to nail status: without damage Foreign body presence: without foreign body Laterality: left Qualified Code(s): S61.211A - Laceration without foreign body of left index finger without damage to nail, initial encounter Instructions: DI for Laceration Repair -- Finger Activity Restrictions/Additional Instructions: Follow-up in 7-10 days for suture removal. You can follow-up with the emergency department, primary care or urgent care. Wound Care: Keep wound(s) clean and dry. Wash daily with soap and water only. Do not use over the counter products (alcohol or peroxide)on the wounds unless instructed by a physician, you may use a topical antibiotic such as Neosporin twice daily. If wound condition worsens (increased/expanding redness, developing fluid blisters, or worsening pain), either contact your doctor for an urgent re-assessment , or return to the Emergency Department. Return to the Emergency Department for any new or worsening symptoms. Return to the ED, urgent care, or vist a primary care doctor for removal or suture or stuart in 7-10 days. Return if fever greater than 100.4 Fahrenheit, increased swelling, increasing pain or worsening symptoms such as increased discharge or spreading redness. Prescriptions: No Action ibuprofen [Advil Liqui-Gel] 200 MG capsule 1 cap PO PRN PRNQty: 0 RF: 0 cyanocobalamin (vitamin B-12) [Vitamin B-12] 500 MCG tablet Qty: 0 RF: 0 cholecalciferol (vitamin D3) [Vitamin D3] 400 UNIT capsule Qty: 0 RF: 0 (DME) Respironics Dreamstation CPAP Qty: 1 RF: 0 Referrals: Mayela Juarez MD [Primary Care Provider] -
[2021-03-28] MEDS: KETOROLAC 30 MG/ML VIAL IM (22:39)
[2021-03-28] MEDS: HYDROCODONE/ACET 5/325 PREPACK 1 BOTTLE MISC (23:20)
== END 2021-03-28 23:22 | disposition home or self-care (01) ==
PROVIDERS: Emergency Provider Emergency Medicine; PCP Family Medicine
DX: S61.211A Laceration without foreign body of left index finger without damage to nail, initial encounter (principal); W27.8XXA Contact with other nonpowered hand tool, initial encounter
CPT/HCPCS: 12001; 73140; 96372; 99283; 99284; J1885

== ENCOUNTER → 2021-06-07 11:59 | Outpatient (CLI) | payer OTHER, SELFPAY ==
[2021-06-07 12:57] LABS: COVID19 -Nasal RAPID Negative (Negative)
== END ==
PROVIDERS: PCP Family Medicine; Visit Provider Physician Assistant
DX: R09.81 Nasal congestion (principal); R50.9 Fever, unspecified; R51.9 Headache, unspecified; Z20.822 Contact with and (suspected) exposure to COVID-19
CPT/HCPCS: 87635

== ENCOUNTER → 2022-10-18 07:16 | Outpatient (CLI) | payer MEDICARE, OTHER, SELFPAY ==
[2022-10-18 07:58] LABS: Add Manual Diff / Slide Review NO; Basophils Absolute Auto 100 /uL (0-100); Basophils Percent Auto 1.2 % (0-2); Eosinophils Absolute Auto 100 /uL (0-450); Eosinophils Percent Auto 2.2 % (2-4); Hematocrit 35.3 % (36-46); Hemoglobin 12.1 g/dL (12.0-16.0); Lymphocytes Absolute Auto 1800 /uL (1100-4500); Lymphocytes Percent Auto 35.8 % (25-40); Mean Corpuscular HGB Conc 34.2 % (30-36); Mean Corpuscular Hemoglobin 30.5 PG (26-34); Mean Corpuscular Volume 89.2 fL (80-100); Monocytes Absolute Auto 400 /uL (0-900); Monocytes Percent Auto 8.1 % (3-14); Neutrophils Absolute Auto 2700 /uL (1500-7000); Neutrophils Percent Auto 52.7 % (50-75); Platelet Count 193 X10^3/uL (150-400); Red Blood Cell Count 3.96 X10^6/uL (4.0-5.2); Red Cell Distribution Width 12.1 % (11.6-14.8); White Blood Cell Count 5.1 X10^3/uL (4.5-11.0)
[2022-10-18 08:32] LABS: Alanine Aminotransferase 25 IU/L (<35); Albumin 4.2 g/dL (3.5-5.0); Albumin Globulin Ratio 1.4 (1.0-2.8); Alkaline Phosphatase 71 U/L (38-126); Aspartate Aminotransferase 21 IU/L (14-36); BUN Creatinine Ratio 14.3 (6-22); Bilirubin Total 0.5 mg/dL (0.2-1.3); Blood Urea Nitrogen 8 mg/dL (7-17); Carbon Dioxide 27 mmol/L (22-32); Chloride 103 mmol/L (98-107); Cholesterol 168 mg/dL (140-199); Estimated Glomerular Filt Rate > 60 mL/min (>60); Globulin 3.1 g/dL (1.7-4.1); Glucose 87 mg/dL (80-110); HDL Cholesterol 55 mg/dL (40-60); HEMOLYSIS < 15 (0-50); LDL Cholesterol Calculated 86 mg/dL (<100); Sodium 141 mmol/L (137-145); Total Protein 7.3 g/dL (6.3-8.2); Triglycerides 135 mg/dL (35-150)
[2022-10-18 09:03] LABS: Thyroid Stimulating Hormone 2.05 uIU/mL (0.47-4.68)
== END ==
PROVIDERS: PCP Family Medicine; Referring Provider Family Medicine; Visit Provider Family Medicine
DX: E78.1 Pure hyperglyceridemia (principal); G47.33 Obstructive sleep apnea (adult) (pediatric); L93.0 Discoid lupus erythematosus; R53.83 Other fatigue
CPT/HCPCS: 36415; 80053; 80061; 84443; 85025

== ENCOUNTER → 2022-10-20 12:08 | Outpatient (CLI) | payer MEDICARE, OTHER, SELFPAY ==
[2022-10-23 13:43] LABS: Fecal Immunochemical Test Negative (Negative)
== END ==
PROVIDERS: PCP Family Medicine; Visit Provider Family Medicine
DX: Z12.11 Encounter for screening for malignant neoplasm of colon (principal)
CPT/HCPCS: 82274

== ENCOUNTER → 2023-01-03 14:26 | Outpatient (CLI) | payer MEDICARE, OTHER, SELFPAY ==
--- NOTE | 2023-01-03 14:27 | DI.RAD.S_ITS ---
Bone Density Report Name: MARINE MARCELINO Age: 67 Sex: Female Ethnicity: White Date of : 1955 Indication: postmenopausal; screening for osteoporosis; Referring Provider: DOROTHEA CORTÉS Study: Bone densitometry was performed. Exam Date: January 03, 2023 Accession number: [id number] Bone Density: Region BMD T-score Z-score Classification AP Spine(L1-L4) 0.717 -3.0 -1.2 Osteoporosis Femoral Neck (Left) 0.549 -2.7 -1.2 Osteoporosis Total Hip (Left) 0.660 -2.3 -1.0 Osteopenia Femoral Neck (Right) 0.575 -2.5 -0.9 Osteoporosis Total Hip (Right) 0.664 -2.3 -1.0 Osteopenia Total Hip Mean 0.662 -2.3 -1.0 Osteopenia World Health Organization criteria for BMD impression classify patients as: Normal (T-score at or above -1.0), Osteopenia (T-score between -1.0 and -2.5), or Osteoporosis (T-score at or below -2.5). 10-year Fracture Risk: FRAX not reported because: Some T-score for Spine Total or Hip Total or Femoral Neck at or below -2.5 Impression: The patient has osteoporosis, based on the Total Spine T-score. Discussion: INCREASED RISK OF FRACTURE. BONE DENSITY IS UNDESIRABLY LOW AT ONE OR MORE SKELETAL SITES, CONSISTENT WITH POSTMENOPAUSAL OSTEOPOROSIS. This patient's lowest T-score meets the World Health Organization's (WHO) criteria for osteoporosis at one or more sites (T-score -2.5 or below). In untreated patients, the risk of osteoporotic fracture increases approximately two-fold for each 1.0 SD decrease in T-score. Low bone density is not the only risk factor for fracture; also consider factors such as patient's age, frailty or poor health, risk of falling, risk of injury, previous osteoporotic fracture, family history of osteoporosis, cigarette smoking, low body weight, etc. Not everyone with low bone mineral density has osteoporosis; osteomalacia and other metabolic bone disorders should also be considered. Patients who have osteoporosis should be evaluated for specific diseases and conditions (secondary causes) that may cause or contribute to bone loss. The [place] Association of Clinical Endocrinologists (AACE) and National Osteoporosis Foundation (NOF) recommend pharmacologic intervention for all postmenopausal women whose T-score is in this range. The patient should follow a healthful lifestyle (good nutrition with adequate calcium and vitamin D, and appropriate weight-bearing exercise). Follow-Up: Consider a repeat BMD and Vertebral Fracture Assessment (VFA) exam in 2 years or sooner if medically necessary, to reassess this patient's status. Reported by: KELLI JOHNSON MD on 01/03/2023 2:04:00 PM.
--- NOTE | 2023-01-03 14:27 | DI.MG.S_ITS ---
BILATERAL DIGITAL SCREENING MAMMOGRAM 3D/2D WITH CAD: 01/03/2023 CLINICAL: Routine screening. Family history of breast cancer. No prior exams were available for comparison. Both breasts are almost entirely fatty (category a/<25% glandular tissue). Current study was also evaluated with a Computer Aided Detection (CAD) system. No significant masses, calcifications, or other findings are seen in either breast. IMPRESSION: NEGATIVE There is no mammographic evidence of malignancy. A 1 year screening mammogram is recommended. Based on the Tyrer Cuzick model (a risk assessment model) the patient's lifetime risk is 6.3% and her 10 year risk is 3.5%. According to the ACR, ACS, and NCCN guidelines, an annual breast MRI exam along with mammogram is recommended if the patient's lifetime risk is 20% or greater. This exam was interpreted at Station ID: [id number]. NOTE: For mammograms, a report in lay terms will be sent to the patient. Approximately 15% of breast malignancies will not be visualized mammographically. In the management of a palpable breast mass, a negative mammogram must not discourage biopsy of a clinically suspicious lesion. Electronically Signed By: Mark Arteaga M.D. acr/omar:01/03/2023 15:16:55 letter sent: Normal Exam ACR BI-RADS Category 1: Negative [id number]
== END ==
PROVIDERS: PCP Family Medicine; Referring Provider Family Medicine; Visit Provider Family Medicine
DX: Z12.31 Encounter for screening mammogram for malignant neoplasm of breast; Z80.3 Family history of malignant neoplasm of breast; Z13.820 Encounter for screening for osteoporosis; Z78.0 Asymptomatic menopausal state; M81.0 Age-related osteoporosis without current pathological fracture
CPT/HCPCS: 77063; 77067; 77080

== ENCOUNTER → 2023-01-11 14:56 | Outpatient (CLI) | payer MEDICARE, OTHER, SELFPAY ==
[2023-01-11 16:01] LABS: Calcium 9.5 mg/dL (8.4-10.2)
[2023-01-23 20:13] LABS: 1,25-Dihydroxy, Vitamin D-2 <10 pg/mL (.)
== END ==
PROVIDERS: PCP Family Medicine; Referring Provider Family Medicine; Visit Provider Family Medicine
DX: M81.0 Age-related osteoporosis without current pathological fracture (principal)
CPT/HCPCS: 36415; 82310; 82652

== ENCOUNTER → 2023-02-04 09:38 | Outpatient (CLI) | payer MEDICARE, OTHER, SELFPAY ==
[2023-02-04 10:26] LABS: Influenza A - CEPHEID Flu A NEGATIVE (NEGATIVE); Influenza B - CEPHEID Flu B NEGATIVE (NEGATIVE); Respiratory Syncytial Virus Negative (Negative)
[2023-02-04 10:36] LABS: COVID-19 CEPHEID 4-PLEX PCR Negative (Negative)
== END ==
PROVIDERS: PCP Family Medicine; Visit Provider Nurse Practitioner Family
DX: R50.9 Fever, unspecified (principal)
CPT/HCPCS: 0241U

== ENCOUNTER 2023-07-31 13:34 | Day surgery (SDC) | payer MEDICARE, OTHER, SELFPAY ==
[2023-07-31 13:55] VITALS: BMI 24.3
[2023-07-31 14:13] VITALS: BP 124/70; PULSE 70; RESP 21; TEMP 36.6; O2SAT 100
[2023-07-31] MEDS: LACTATED RINGERS 1,000 ML 150 ML IV (14:18)
--- NOTE | 2023-07-31 14:32 | PM.HP.1 ---
History of Present Illness History of Present Illness Date Patient Seen: 07/31/23 Time Patient Seen: 14:34 Chief complaint: Colonoscopy Narrative: The patient presents for colorectal screening. They have never had any previous examination for such. No personal or family history of colon cancer. On further history denies any recent gastrointestinal symptoms. She endorses a change of bowel habits lately. No blood per rectum unintentional weight loss. REPLACED BY [facility] Medical History Insomnia Obstructive sleep apnea of adult HPV (human papilloma virus) infection (2012) Herpes (1999) Sjogren's syndrome (2014) Abnormal Pap smear of cervix (2012) Lupus (2014) Cervical cancer (2012) Cervical intraepithelial neoplasia grade 1 (02/21/17) Systemic lupus erythematosus with other organ involvement (01/08/17) Surgical History Anesthesia Status post appendectomy (1972) Status post delivery (1983) Status post delivery (1981) Family History Mother Lung cancer Stroke Son Diabetes mellitus Grandfather Throat cancer Grandmother No problems noted. Social History household members: spouse Smoking Status: Never smoker alcohol intake: current Meds Home Medications and Allergies Home Medications Medication Instructions Recorded Confirmed Type cholecalciferol (vitamin D3) 10 ##0 01/08/17 06/22/23 History mcg (400 unit) capsule (Vitamin D3) cyanocobalamin (vitamin B-12) 500 ##0 01/08/17 06/22/23 History mcg tablet (Vitamin B-12) Respironics Dreamstation CPAP #1 ea 07/15/19 06/22/23 History Allergies Allergy/AdvReac Type Severity Reaction Status Date / Time No Known Allergies Allergy Uncoded 07/31/23 13:54 Exam Vital Signs (past 8 hours): - 07/31/23 14:13 Temperature 97.8 F Pulse Rate 70 Respiratory Rate 21 Blood Pressure 124/70 Pulse Oximetry 100 Oxygen Delivery Method Room Air Oxygen Delivery Method Room Air Narrative Exam Narrative: General adult woman alert oriented no acute distress Assessment & Plan Assessment & Plan narrative: The patient requires colorectal screening and colonoscopy is recommended. Technical details were discussed. Risks, benefits, alternatives explained. Risks including but not limited to myocardial infarction, aspiration, bleeding, pain, missed lesion, incomplete examination, need for further radiographic studies, colonic perforation, and need for major abdominal surgery were discussed. All questions were answered to their satisfaction, and they are in agreement with this plan.
--- NOTE | 2023-07-31 14:57 | PM.OP.COLON ---
Operative Date/Time/Diagnoses Date of procedure: 07/31/23 Time of procedure: 14:57 Pre-op diagnosis: Colorectal screening Post-op diagnosis: same Procedure & Clinicians Study performed: Colonoscopy Same procedure as scheduled: Yes Indications: Colorectal screening Surgeon: Wilbert Velazquez Procedure Notes Procedure in detail: The history and physical was performed/updated and the patient is ASA class is 2. The procedure was discussed in detail with the patient. Potential risks complications including infection, bleeding, missed diagnosis, perforation, need for surgery, and were explained. Their questions were answered and informed consent was obtained. Patient was brought to the procedure room and placed standard monitoring equipment. The patient's vital signs were monitored continuously throughout the entire procedure. Prior to starting time-out was performed. The patient was placed in the left lateral recumbent position. Procedural sedation was administered by anesthesia. Examination began with a thorough inspection of the perianal area there was no evidence of fissures, fistulae, external hemorrhoids or cutaneous malignancy. The colonoscopy scope was then placed into the anal canal and was advanced to the cecum, which was identified by the ileocecal valve, the appendiceal orifice and the confluence of the taenia. The scope was then slowly withdrawn examining colon thoroughly in all directions, irrigating it of any residual stool. Unremarkable colonoscopy. No masses polyps or inflammation. Normal healthy colon The patient tolerated the procedure well. They will be discharged once criteria are met. The prep was of good/excellent quality. The withdrawl time was 6 minutes. Specimen(s): none sent Impression: Normal colonoscopy Post-procedure Recommendations: High fiber diet Disposition: same day surgery
[2023-07-31 14:58] VITALS: BP 123/71; PULSE 69; RESP 16; TEMP 36.1; O2SAT 100
[2023-07-31 15:01] VITALS: BP 114/69; PULSE 66; RESP 18; O2SAT 100
[2023-07-31 15:06] VITALS: BP 123/71; PULSE 69; RESP 16; TEMP 36.7; O2SAT 100
[2023-07-31 15:23] VITALS: BP 124/68; PULSE 74; RESP 16; TEMP 36.5; O2SAT 100
== END 2023-07-31 15:33 | disposition home or self-care (01) ==
PROVIDERS: PCP Family Medicine; Referring Provider Surgery; Visit Provider Surgery
PROC: 0DJD8ZZ Inspection of Lower Intestinal Tract, Via Natural or Artificial Opening Endoscopic (ICD-10-PCS; CPT 45378; principal; 2023-07-31 14:30)
DX: Z12.11 Encounter for screening for malignant neoplasm of colon (principal)
CPT/HCPCS: G0121; J2704

== ENCOUNTER → 2023-11-29 07:22 | Outpatient (CLI) | payer MEDICARE, OTHER, SELFPAY ==
[2023-11-29 08:20] LABS: HEMOLYSIS < 15 (0-50); Iron 68 ug/dL (37-170)
[2023-11-29 08:32] LABS: Percent Iron Saturation 19 % (15-50); Total Iron Binding Capacity 349 ug/dL (265-497); Transferrin 322 mg/dL (206-381)
[2023-12-05 17:35] LABS: Ferritin 26 ng/mL (11-264)
== END ==
LOC: LAB 07:23
PROVIDERS: PCP Family Medicine; Referring Provider Internal Medicine Sleep Medicine; Visit Provider Internal Medicine Sleep Medicine
DX: G47.33 Obstructive sleep apnea (adult) (pediatric) (principal); G25.81 Restless legs syndrome; E83.10 Disorder of iron metabolism, unspecified; R25.8 Other abnormal involuntary movements
CPT/HCPCS: 36415; 82728; 83540; 83550

== ENCOUNTER → 2023-12-12 13:03 | Outpatient (CLI) | payer MEDICARE, OTHER, SELFPAY ==
--- NOTE | 2023-12-12 | DI.RAD.S_ITS ---
PROCEDURE: XR ABDOMEN 1V INDICATIONS: ASSESS FECAL LOAD TECHNIQUE: One view of the abdomen acquired. COMPARISON: None. FINDINGS: Surgical changes and devices: None. Bowel: Bowel gas pattern is normal. Moderately increased quantity of solid stool in the ascending and descending colons without significant rectal obstipation. Soft tissues: No suspicious abdominal calcifications. Visualized solid organ contours appear normal in size. Bones: No suspicious bony lesions. IMPRESSION: [id number] amount of retained stool. Dictated by: Janie Corbett M.D. on 12/12/2023 at 17:23 Approved by: Janie Corbett M.D. on 12/12/2023 at 17:24
== END ==
LOC: RAD 13:11
PROVIDERS: PCP Family Medicine; Referring Provider Internal Medicine Gastroenterology; Visit Provider Internal Medicine Gastroenterology
DX: R19.4 Change in bowel habit (principal); R19.5 Other fecal abnormalities; R10.30 Lower abdominal pain, unspecified; R14.3 Flatulence; R13.10 Dysphagia, unspecified
CPT/HCPCS: 74018

== ENCOUNTER → 2023-12-13 07:01 | Outpatient (CLI) | payer MEDICARE, OTHER, SELFPAY ==
[2023-12-13 07:49] LABS: Add Manual Diff / Slide Review NO; Basophils Absolute Auto 100 /uL (0-100); Basophils Percent Auto 1.3 % (0-2); Eosinophils Absolute Auto 200 /uL (0-450); Hematocrit 36.6 % (36-46); Hemoglobin 12.3 g/dL (12.0-16.0); Lymphocytes Absolute Auto 1600 /uL (1100-4500); Lymphocytes Percent Auto 35.6 % (25-40); Mean Corpuscular HGB Conc 33.5 % (30-36); Mean Corpuscular Hemoglobin 30.4 PG (26-34); Mean Corpuscular Volume 90.8 fL (80-100); Monocytes Absolute Auto 300 /uL (0-900); Monocytes Percent Auto 6.6 % (3-14); Neutrophils Absolute Auto 2300 /uL (1500-7000); Neutrophils Percent Auto 52.5 % (50-75); Platelet Count 187 X10^3/uL (150-400); Red Blood Cell Count 4.03 X10^6/uL (4.0-5.2); Red Cell Distribution Width 12.5 % (11.6-14.8); White Blood Cell Count 4.4 X10^3/uL (4.5-11.0)
[2023-12-13 08:30] LABS: Alanine Aminotransferase 19 IU/L (<35); Albumin 4.3 g/dL (3.5-5.0); Albumin Globulin Ratio 1.5 (1.0-2.8); Alkaline Phosphatase 71 U/L (38-126); Aspartate Aminotransferase 20 IU/L (14-36); Bilirubin Total 0.5 mg/dL (0.2-1.3); Blood Urea Nitrogen 11 mg/dL (7-17); C-Reactive Protein Quant 0.5 mg/dL (<1.0); Calcium 9.4 mg/dL (8.4-10.2); Carbon Dioxide 25 mmol/L (22-32); Chloride 104 mmol/L (98-107); Estimated Glomerular Filt Rate > 60 mL/min (>60); Globulin 2.8 g/dL (1.7-4.1); Glucose 88 mg/dL (80-110); HEMOLYSIS < 15 (0-50); Lipase 73 U/L (23-300); Potassium 3.8 mmol/L (3.4-5.1); Sodium 139 mmol/L (137-145); Total Protein 7.1 g/dL (6.3-8.2)
[2023-12-13 08:52] LABS: TSH w/ Reflex to FT4 2.15 uIU/mL (0.47-4.68)
[2023-12-13 09:31] LABS: Folate > 20.0 ng/mL (2.76-20.0); Vitamin B12 > 1000 pg/mL (239-931)
[2023-12-14 13:36] LABS: Fecal Immunochemical Test Negative (Negative)
[2023-12-14 19:42] LABS: Fats, Neutral Normal (.); Fats, Total Normal (.)
[2023-12-14 21:54] LABS: Deamidated Gliadin Ab IgA 4 units (0-19); Deamidated Gliadin Ab IgG 1 units (0-19); Immunoglobulin A,Qn 324 mg/dL (87-352); t-Transglutaminase IgA <2 U/mL (0-3)
[2023-12-18 17:08] LABS: Calprotectin, Stool 28 ug/g (0-120)
[2023-12-19 10:13] LABS: Pancreatic Elastase, Fecal 353 (>200)
== END ==
PROVIDERS: PCP Family Medicine; Referring Provider Internal Medicine Gastroenterology; Visit Provider Internal Medicine Gastroenterology
DX: R19.4 Change in bowel habit (principal); R19.5 Other fecal abnormalities; R10.30 Lower abdominal pain, unspecified; R14.3 Flatulence; R13.10 Dysphagia, unspecified
CPT/HCPCS: 36415; 80053; 82274; 82607; 82656; 82705; 82746; 82784; 83516; 83690; 83993; 84443; 85025; 86140

== ENCOUNTER → 2024-02-13 08:45 | Outpatient (CLI) | payer MEDICARE, OTHER, SELFPAY ==
--- NOTE | 2024-02-13 08:46 | DI.RAD.S_ITS ---
PROCEDURE: FL BARIUM SWALLOW W SPEECH INDICATIONS: Dysphagia, unspecified COMPARISON: None. TECHNIQUE: Examination was conducted in conjunction with speech pathology per standard protocol. In the lateral projection, filming was performed of the patient swallowing. AP projection filming may also be performed with patient swallowing. COMPARISON: FINDINGS: Function: The oral preparatory phase appears normal, with proper containment. The subsequent oral propulsive phase, pharyngeal phase, and esophageal phase of swallowing also appear normal with all proffered substances. No laryngotracheal penetration or aspiration. No trace vallecular and piriform sinus pooling. Mild retention of contrast in the esophagus. Morphology: No cricopharyngeal bar is identified. No cervical esophageal webs. No Zenker's diverticulum. No strictures. IMPRESSION: No aspiration. Please see separately dictated speech pathologist's report. Dictated by: Alex Velásquez M.D. on 02/13/2024 at 11:50 Approved by: Alex Velásquez M.D. on 02/13/2024 at 11:52
--- NOTE | 2024-02-13 14:53 | ST.SWALLOW ---
Visit Care Team Role Provider Type Mayela Juarez MD Primary Care Provider Physician Specialty: Family Practice Address: [address] [place] [address], [address], [place], [address] Email: [email or web address] Radha Valladares MD Attending Provider Non-Staff Referring Provider Specialty: Gastroenterology Address: [address] [place] [address]. [address], [place], [address] Email: Modified Barium Swallow Study HANDYMAN Modified Barium Swallow Study Start: 02/13/24 13:36 Freq: Status: Active Protocol: Document 02/13/24 13:36 LNK (Rec: 02/13/24 14:53 LNK [id number]) Modified Barium Swallow Study Total Time Visit Start Time 09:00 Visit Stop Time 09:30 Total Visit Minutes 30 Referral Referring Physician Mayela Juarez MD Patient Information Patient History pt was seen for a Modified Barium Swallow Study at the referral of Dr. Juarez. Pt has PMH that included GERD. Pt recently had an EGD that indicated a small hernia. Pt noted that her esophagus was widened a little. Pt denied neck injury/surgery as well as any neurological diagnoses. Pt described her swallow as incomplete. She reported that she will swallow something and it will not go down to her stomach. Subjective Observations Pt was seated in the fluoroscopy chair with the directions and procedures described for her. She indicated she understood and agreed to proceed. Patient Positioning Position View Lat-A/P Imaging Lateral View Textures Administered Trials Presented Thin Liquid via Spoon (IDDSI 0 ),Thin Liquid via Cup (IDDSI 0 ),Extremely Thick Liquid via Spoon (IDDSI 4),Regular (IDDSI 7) Barium Tablet Yes The IDDSI Framework Protocol: IDDSI.1 Oral Impairment Source: The Modified Barium Swallow Impairment Profile (MBSImP??) Lip Closure No labial escape Tongue Control During Bolus Hold Cohesive bolus between tongue to palatal seal Bolus Preparation/Mastication Timely & efficient chewing & mashing Bolus Transport/Lingual Motion Brisk tongue motion Oral Residue Trace residue lining oral structures Location Tongue Initiation of Pharyngeal Swallow Bolus head in valleculae Additional Oral Impairment Observations OME and DKS wer observed to be WNL. Mastication was adequate with a rotary chew pattern with good bolus formation, control and AP transition. Pharyngeal Impairment Source: The Modified Barium Swallow Impairment Profile (MBSImP??) Soft Palate Elevation No bolus between soft palate & pharyngeal wall Laryngeal Elevation Part.sup.move.thyroid cart/ part.approx.arytenoids to epiglot.petiole Anterior Hyoid Excursion Partial anterior movement Epiglottic Movement Complete inversion Laryngeal Vestibular Closure Complete; no air/contrast in laryngeal vestibule Pharyngeal Stripping Wave Present - diminished Pharyngoesophageal Segment Opening Complete distention & complete duration; no obstruction of flow Tongue Base Retraction Trace column of contrast/air betwn tongue base & post. pharyngeal wall Pharyngeal Residue Trace residue within/on pharyngeal structures Location Valleculae Additional Pharyngeal Impairment Mild tongue base retraction Observations strength as well as reduced hyolaryngeal elevation and movement were observed. Epiglottic inversion, seal of the laryngeal vestibule and posterior pharyngeal wall stripping also observed to be mildly reduced in strength and ROM. No laryngeal penetration or tracheal aspiration observed Overall, pharyngeal phase was observed to be WFL. A/P View Textures Administered Trials Presented Thin Liquid via Cup (IDDSI 0) The IDDSI Framework Protocol: IDDSI.1 A/P View Observations Pharyngeal Contraction Complete Esophageal Clearance Upright Position Complete clearance; esophageal coating Vocal Fold Function Good Esophageal Function WFL Additional A-P Observations Reduced esophageal motility. Residue noted was cleared with additional swallows of water. Clinical Impressions Findings Swallow observed to be WFL Patient Appropriate for Therapy No Recommendations Diet Comments No diet change recommended
== END ==
LOC: RAD 08:45
PROVIDERS: PCP Family Medicine; Referring Provider Internal Medicine Gastroenterology; Visit Provider Internal Medicine Gastroenterology
DX: R13.10 Dysphagia, unspecified (principal); R19.5 Other fecal abnormalities; R14.3 Flatulence; R19.4 Change in bowel habit
CPT/HCPCS: 74230; 92611

== ENCOUNTER → 2024-04-18 07:38 | Outpatient (CLI) | payer MEDICARE, OTHER, SELFPAY ==
[2024-04-18 09:02] LABS: HEMOLYSIS < 15 (0-50); Iron 129 ug/dL (37-170)
[2024-04-18 09:12] LABS: Percent Iron Saturation 39 % (15-50); Total Iron Binding Capacity 334 ug/dL (265-497); Transferrin 259 mg/dL (206-381)
[2024-04-18 09:34] LABS: Ferritin 33 ng/mL (11-264)
== END ==
PROVIDERS: PCP Family Medicine; Referring Provider Nurse Practitioner; Visit Provider Nurse Practitioner
DX: G25.81 Restless legs syndrome (principal); E83.10 Disorder of iron metabolism, unspecified
CPT/HCPCS: 36415; 82728; 83540; 83550

== ENCOUNTER → 2025-01-09 12:45 | Outpatient (CLI) | payer MEDICARE, OTHER, SELFPAY | PROVIDERS: PCP Family Medicine; Referring Provider Family Medicine; Visit Provider Family Medicine | DX: M62.84 Sarcopenia (principal) ==

== ENCOUNTER → 2025-02-10 06:56 | Outpatient (CLI) | payer MEDICARE, OTHER, SELFPAY ==
[2025-02-10 08:14] LABS: Cholesterol 184 mg/dL (140-199); Glucose 97 mg/dL (80-110); HDL Cholesterol 66 mg/dL (40-60); LDL Cholesterol Calculated 99 mg/dL (<100); Triglycerides 96 mg/dL (35-150)
== END ==
PROVIDERS: PCP Family Medicine; Referring Provider Family Medicine; Visit Provider Family Medicine
DX: E78.5 Hyperlipidemia, unspecified (principal); Z13.1 Encounter for screening for diabetes mellitus
CPT/HCPCS: 36415; 80061; 82947

== ENCOUNTER → 2025-08-04 13:48 | Outpatient (CLI) | payer MEDICARE, OTHER, SELFPAY ==
--- NOTE | 2025-08-04 13:49 | DI.MG.S_ITS ---
MM screening mammo BI: 08/04/2025. BI-RADS: 1 CLINICAL: 70-year old female for bilateral screening mammogram. Tyrer-Cuzick lifetime risk of 7.3%. Current reported family history of breast cancer: mother. PRIOR EXAMS 01/03/2023. MAMMOGRAPHY TECHNIQUE: 2D and 3D (tomosynthesis) digital mammographic views obtained, with additional images as needed for full coverage. Current study was also evaluated with a Computer Aided Detection (CAD) system. DENSITY B. There are scattered areas of fibroglandular density. MAMMOGRAPHY FINDINGS Bilateral: No suspicious mass, asymmetry, microcalcification, or other abnormality seen. No significant change from comparison. IMPRESSION: * No evidence of malignancy. RECOMMENDATIONS Bilateral * Annual screening mammography. OVERALL ASSESSMENT CATEGORY BI-RADS-1: Negative. The [employer] recommends annual screening mammography beginning at age 40 for women with average risk of breast cancer. ELECTRONICALLY SIGNED: Janie Corbett M.D. on 08/05/2025 at 11:12:59 AM PT Interpreting Station ID: [id number]
--- NOTE | 2025-08-04 13:49 | DI.RAD.S_ITS ---
PROCEDURE: XR DEXA AXIAL SKELETON INDICATIONS: Osteoporosis COMPARISON: [facility], , XR DEXA AXIAL SKELETON, 01/03/2023, 13:44. FINDINGS: Lumbar Spine: Bone mineral density 0.716 g/cm2, T score -3.0. Since the most recent prior study, there has been no significant change in bone mineral density. Left Femoral Neck: Bone mineral density 0.582 g/cm2, T score -2.4. Left Hip: Bone mineral density 0.668 g/cm2, T score -2.2. Since the most recent prior study, there has been an increase in bone mineral density by 1.2%. Fracture Risk Calculation (when applicable): FRAX score not reported due to T-score less than or equal to -2.5. (T score greater or equal to -1.0 to: NORMAL) (T score from -1.1 to -2.4: OSTEOPENIA) (T score less than or equal to -2.5: OSTEOPOROSIS) IMPRESSION: By WHO criteria, patient has osteoporosis. Follow-up guidelines as follows: Osteoporosis: Consider a repeat DEXA and Vertebral Fracture Assessment (VFA) exam in 2 years or sooner if medically necessary, to reassess this patient's status. Osteopenia: Consider a repeat DEXA in 2-3 years to reassess this patient's status, or if there is a new clinical indication. Normal: Consider a repeat DEXA in 5 years or sooner, or if there is a new clinical indication. All treatment decisions require clinical judgment and consideration of individual patient factors, including patient preferences, comorbidities, previous drug use, risk factors not captured in the FRAX model (e.g., frailty, falls, vitamin D deficiency, increased bone turnover, interval significant decline in bone density ) and possible under- or over-estimation of fracture risk by FRAX. In addition, the NOF Guide recommends that FDA-approved medical therapies be considered in postmenopausal women and men age >= 50 years with a: * Hip or vertebral (clinical or morphometric) fracture * T-score of <=-2.5 at the spine or hip * Ten-year fracture probability by FRAX of >= 3% for hip fracture or >=20% for major osteoporotic fracture. Approved by: Jay Muñiz M.D. on 08/11/2025 at 12:58
== END ==
LOC: RAD 13:49
PROVIDERS: PCP Family Medicine; Referring Provider Family Medicine; Visit Provider Family Medicine
DX: Z12.31 Encounter for screening mammogram for malignant neoplasm of breast (principal); Z13.820 Encounter for screening for osteoporosis; M85.89 Other specified disorders of bone density and structure, multiple sites; M81.0 Age-related osteoporosis without current pathological fracture; Z80.3 Family history of malignant neoplasm of breast
CPT/HCPCS: 77063; 77067; 77080